=== PATIENT | female | born 1970 | race Caucasian/White ===

== ENCOUNTER 2018-02-11 07:34 | Observation (INO) | payer MEDICARE ==
[2018-02-11 08:41] LABS: CHLORIDE,CL 104 mmol/L (98-115); SODIUM,NA 139 mmol/L (136-145)
--- NOTE | 2018-02-11 08:43 | EDM.PDOC ---
ED HPI GENERAL MEDICAL PROBLEM - General Chief Complaint: Chest Pain Stated Complaint: chest pain Time Seen by Provider: 02/11/18 08:27 Source of Information: Reports: Patient History Limitations: Reports: No Limitations - History of Present Illness INITIAL COMMENTS - FREE TEXT/NARRATIVE: Patient is a 47-year-old female who presents to the emergency department this morning via EMS for chest pain. Patient states that she woke this morning and had midsternal chest pain while at rest, described as sharp and intermittent, and lasting for several minutes. Patient states that this is been going on and off for several months, but has not seeked medical advice. Patient also states that she has chronic low back pain. Patient is morbidly obese and sedentary. Patient denies shortness of breath, nausea, vomiting, diarrhea, any fall or trauma, any out of country travel, any increase in edema of lower extremities, social drugs or any medication. 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: Musculoskeletal History: Reports: Back Pain, Chronic Endocrine/Metabolic History: Reports: Obesity/BMI 30+ Dermatologic History: Reports: Other (See Below) Other Dermatologic History: dry skin - Past Surgical History Female Surgical History: Reports: Hysterectomy Musculoskeletal Surgical History: Reports: None Dermatological Surgical History: Reports: None Social & Family History - Tobacco Use Smoking Status *Q: Never Smoker - Caffeine Use Caffeine Use: Reports: Soda Other Caffeine Use: regular - Recreational Drug Use Recreational Drug Use: No ED ROS GENERAL - Review of Systems Review Of Systems: ROS reveals no pertinent complaints other than HPI. Constitutional: Reports: No Symptoms HEENT: Reports: No Symptoms Respiratory: Reports: No Symptoms Cardiovascular: Reports: Chest Pain Endocrine: Reports: No Symptoms GI/Abdominal: Reports: No Symptoms : Reports: No Symptoms Musculoskeletal: Reports: No Symptoms Skin: Reports: No Symptoms Neurological: Reports: No Symptoms Psychiatric: Reports: No Symptoms Hematologic/Lymphatic: Reports: No Symptoms Immunologic: Reports: No Symptoms ED EXAM, GENERAL - Physical Exam Exam: See Below Exam Limited By: No Limitations General Appearance: Alert, WD/WN, No Apparent Distress Eye Exam: Bilateral Eye: Normal Inspection Nose: Normal Inspection, Normal Mucosa, No Blood Throat/Mouth: Normal Inspection, Normal Oropharynx, No Airway Compromise Head: Atraumatic, Normocephalic Neck: Normal Inspection, Supple, Non-Tender Respiratory/Chest: No Respiratory Distress, Lungs Clear, Normal Breath Sounds, No Accessory Muscle Use Cardiovascular: Regular Rate, Rhythm, No Murmur GI/Abdominal: Normal Bowel Sounds, Soft, Non-Tender Back Exam: Normal Inspection. No: CVA Tenderness (L), CVA Tenderness (R) Extremities: Normal Inspection, No Pedal Edema Neurological: Alert, Oriented, Normal Cognition Psychiatric: Normal Affect, Normal Mood Skin Exam: Warm, Dry, Intact, Normal Color, No Rash EKG INTERPRETATION EKG Date: 02/11/18 Time: 08:10 Rhythm: NSR Rate (Beats/Min): 90 [place]: Normal P-Wave: Present QRS: Normal ST-T: Normal QT: Normal Comparison: NA - No Prior EKG Course - Vital Signs Last Recorded V/S: Last Vital Signs Temp 96.8 F 02/11/18 08:00 Pulse 92 02/11/18 08:00 Resp 20 02/11/18 08:00 BP 137/94 H 02/11/18 08:00 Pulse Ox 96 02/11/18 08:00 - Orders/Labs/Meds Orders: Active Orders 24 hr Category Date Time Status EKG Documentation Completion [RC] ASDIRECTED Care 02/11/18 08:05 Active CK W CKMB [CHEM] Stat Lab 02/11/18 08:05 Received COMPREHENSIVE METABOLIC PN,CMP [CHEM] Stat Lab 02/11/18 08:05 Received D-DIMER QUANTITATIVE [COAG] Stat Lab 02/11/18 08:05 Received LIPASE [CHEM] Stat Lab 02/11/18 08:05 Received TROPONIN I [CHEM] Stat Lab 02/11/18 08:05 Received EKG 12 Lead [EK] Routine Ther 02/11/18 07:45 Ordered Labs: Laboratory Tests 02/11/18 Range/Units 08:05 WBC 10.2 H (5.0-10.0) 10^3/uL RBC 4.65 (3.80-5.50) 10^6/uL Hgb 14.5 (12.0-16.0) g/dL Hct 43.4 (37.0-47.0) % MCV 93.3 H (82.0-92.0) fL MCH 31.1 H (27.0-31.0) pg MCHC 33.3 (32.0-36.0) g/dL RDW 13.1 (11.5-14.5) % Plt Count 236 (150-300) 10^3/uL MPV 7.6 (7.4-10.4) fL Neut % (Auto) 58.1 (50.0-70.0) % Lymph % (Auto) 32.7 (20.0-40.0) % Nash % (Auto) 6.6 (2.0-8.0) % Eos % (Auto) 2.0 (1.0-3.0) % Baso % (Auto) 0.6 (0.0-1.0) % Neut # (Auto) 5.9 (2.5-7.0) 10^3/uL Lymph # (Auto) 3.3 (1.0-4.0) 10^3/uL Nash # (Auto) 0.7 (0.1-0.8) 10^3/uL Eos # (Auto) 0.2 (0.1-0.3) 10^3/uL Baso # (Auto) 0.1 (0.0-0.1) 10^3/uL - Radiology Interpretation Free Text/Narrative:: Chest x-ray negative for acute cardiopulmonary process - Re-Assessments/Exams Free Text/Narrative Re-Assessment/Exam: 02/11/18 09:37 Patient afebrile, nontoxic appearing, vital signs stable. Discussed negative findings with patient. Patient and concerned. Patient will be admitted for observation and repeat lab work. Departure - Departure Time of Disposition: 09:46 Disposition: Refer to Observation Condition: Fair Clinical Impression: Atypical chest pain Referrals: Dari Lane MD [Primary Care Provider] - - My Orders Last 24 Hours: My Active Orders 02/11/18 07:45 EKG 12 Lead [EK] Routine 02/11/18 08:05 EKG Documentation Completion [RC] ASDIRECTED CK W CKMB [CHEM] Stat COMPREHENSIVE METABOLIC PN,CMP [CHEM] Stat D-DIMER QUANTITATIVE [COAG] Stat LIPASE [CHEM] Stat TROPONIN I [CHEM] Stat - Assessment/Plan Last 24 Hours: My Active Orders 02/11/18 07:45 EKG 12 Lead [EK] Routine 02/11/18 08:05 EKG Documentation Completion [RC] ASDIRECTED CK W CKMB [CHEM] Stat COMPREHENSIVE METABOLIC PN,CMP [CHEM] Stat D-DIMER QUANTITATIVE [COAG] Stat LIPASE [CHEM] Stat TROPONIN I [CHEM] Stat Assessment:: Atypical chest pain Plan: Admit for observation
[2018-02-11] MEDS ORDERED: Ketorolac 60 MG/2 ML SDV IM ONE (09:48)
[2018-02-11] MEDS ORDERED: Ibuprofen 200 MG Tab PO PRN (14:08)
--- NOTE | 2018-02-12 16:44 | PCM.DCSUM1 ---
Discharge Summary - Hospital Course Free Text/Narrative:: Patient is a 47-year-old female who was admitted for observation from the emergency Department this morning. Patient presented to the emergency with chest pain. After discussion with the patient and , consideration for observation versus going home, was evaluated. Patient and were concerned and hesitant to go home. Therefore, after consideration, patient was admitted for observation. Initial EKG and cardiac enzymes were negative. Vital signs were stable. Chest pain had resolved. Brief History: 47-year-old morbidly obese female presented to emergency department for chest pain and was admitted for observation for repeat cardiac enzymes and evaluation. - Discharge Data Discharge Date: 02/11/18 Discharge Disposition: Home, Self-Care 01 Condition: Good - Discharge Diagnosis/Problem(s) (1) Atypical chest pain SNOMED Code(s): 543639884 ICD Code: R07.89 - OTHER CHEST PAIN Status: Acute - Patient Summary/Data Hospital Course: EKG and troponin was repeated and there were no changes from prior results. After thorough discussion with patient and , it was decided that patient would be able to go home with a follow-up in 2 days at primary care. Patient will return to emergency department if symptoms continue or worsen. - Patient Instructions Diet: Heart Healthy Diet Activity: No Strenuous Activities Driving: Do Not Drive Showering/Bathing: May Shower - Discharge Plan Home Medications: Home Meds Ibuprofen 200 - 800 mg PO Q6H PRN 02/11/18 [History] Forms: ED Department Discharge Referrals: Dari Lane MD [Primary Care Provider] - - Discharge Summary/Plan Comment DC Time >30 min.: No Discharge Summary/Plan Comment: Patient will follow-up with Dr. Vaca in next 2 days. Concern for further cardiac, weight control, as well as diabetic workup considered. Patient will return to ER sooner if symptoms continue or worsen - Patient Data Vitals - Most Recent: Last Vital Signs Temp 98.0 F 02/11/18 10:25 Pulse 83 02/11/18 10:25 Resp 22 H 02/11/18 10:25 BP 157/105 H 02/11/18 10:25 Pulse Ox 97 02/11/18 10:25 Weight - Most Recent: 470 lb Med Orders - Current: Current Medications Discontinued Medications Ibuprofen (Motrin) 200 - 800 mg PO Q6H PRN PRN Reason: Pain Ketorolac Tromethamine (Toradol) 60 mg IM ONETIME ONE Stop: 02/11/18 09:49 Last Admin: 02/11/18 10:07 Dose: 60 mg
== END 2018-02-11 14:35 | disposition home or self-care (01) ==
LOC: KA.ED 07:34 → KA.MS 09:49
PROVIDERS: ADMIT Physician Assistant Surgical; ATTEND Physician Assistant Surgical
DX: R07.89 Other chest pain (principal); E66.01 Morbid (severe) obesity due to excess calories; Z68.30 Body mass index [BMI] 30.0-30.9, adult; Z90.710 Acquired absence of both cervix and uterus
CPT/HCPCS: 36415; 71045; 80053; 82550; 82553; 83690; 84484; 85025; 85379; 96372; 99285; J1885; 93005; G0378

== ENCOUNTER 2021-08-17 11:48 | Inpatient (IN) | payer MEDICARE ==
--- NOTE | 2021-08-17 11:48 | CR ---
[id number] RAD/RAD Toes Left EXAM: 3 VIEWS LEFT FOOT. INDICATION: LOCAL INFECTION OF THE SKIN AND SUBCUTANEOUS TISSUE, COMPARISON: None. DISCUSSION: Multi fragmentary cortical destruction of the distal 1st phalanx with underlying ulceration. Findings are consistent with acute osteomyelitis. Mild degenerative changes seen throughout the left foot. IMPRESSION: 1. Findings consistent with osteomyelitis of the distal 1st phalanx. Denys Sousa DO 08/17/21 1147 Thank you for allowing us to participate in the care of your patient.
[2021-08-17 12:12] LABS: ANION GAP 15.9 mmol/L (5-15); CHLORIDE,CL 103 mmol/L (98-107); SODIUM,NA 139 mmol/L (136-145)
--- NOTE | 2021-08-17 12:21 | PCM.HP.2 ---
H&P History of Present Illness - General Date of Service: 08/17/21 Admit Problem/Dx: Severely infected left great toe with high likelihood of osteomyelitis. Diabetes, oral management. Obesity. Source of Information: Patient History Limitations: Reports: No Limitations - History of Present Illness Initial Comments - Free Text/Narative: Ruma presents today with a scheduled clinic appointment for evaluation of what she stated was an infected toenail of the left great toe. She states is been ongoing for couple weeks and acknowledges some what, she possibly I probably should have come in sooner. She is unsure of her glucose management as she states she does not check her blood sugars. She is not aware of any risk factors for pandemic concerns. She was scheduled for this upcoming Tuesday for her 6-month review of diabetes with lab work scheduled. She may have mild fever chills symptoms but does not express any major concerns, at least not warranting evaluation sooner than today. She denies any issues with mentation, no difficulty with her appetite. No shortness of breath no chest pain. No abdominal discomfort, stating her urine may be slightly more frequent the past couple days but denies any dysuria or urgency. Onset of Symptoms: Reports: Unknown/Unsure Duration of Symptoms: Reports: Week(s): Location: Reports: Lower Extremity, Left Quality: Denies: Ache, Burning, Pressure, Sharp, Stabbing Severity: Severe Improves with: Reports: None Worsens with: Reports: Movement Context: Denies: Sick Contact, Activity/Exercise, Exertion Associated Symptoms: Reports: Fever/Chills - Related Data Allergies/Adverse Reactions: Allergies Allergy/AdvReac Type Severity Reaction Status Date / Time No Known Drug Allergies Allergy Cannot Verified 08/17/21 12:31 Remember Home Medications: Home Meds Gabapentin [Neurontin] 1,800 mg PO BEDTIME 08/17/21 [History] Ibuprofen 800 mg PO TID PRN 08/17/21 [History] atorvaSTATin Calcium [Atorvastatin Calcium] 10 mg PO DAILY 08/17/21 [History] glipiZIDE [Glipizide Xl] 5 mg PO DAILY 08/17/21 [History] metFORMIN [Glucophage XR] 1,000 mg PO BIDMEALS 08/17/21 [History] Past Medical History Cardiovascular History: Reports: High Cholesterol Respiratory History: Reports: None Gastrointestinal History: Reports: None Genitourinary History: Reports: 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: Musculoskeletal History: Reports: Back Pain, Chronic Neurological History: Reports: Neuropathy, Peripheral Psychiatric History: Reports: None Endocrine/Metabolic History: Reports: Diabetes, Type II, Obesity/BMI 30+ Dermatologic History: Reports: Other (See Below) Other Dermatologic History: dry skin - Past Surgical History Female Surgical History: Reports: Hysterectomy Musculoskeletal Surgical History: Reports: None Dermatological Surgical History: Reports: None Social & Family History - Family History Family Medical History: No Pertinent Family History - Caffeine Use Caffeine Use: Reports: Soda Other Caffeine Use: regular H&P Review of Systems - Review of Systems: Review Of Systems: Comprehensive ROS is negative, except as noted in HPI. Exam - Exam Exam: See Below - Exam General: Alert, Oriented, 4 HEENT: Conjunctiva Clear, EACs Clear, EOMI, Hearing Intact, Mucosa Moist & [place], Nares Patent, Normal Nasal Septum, Posterior Pharynx Clear, PERRLA Neck: Supple, Trachea Midline Lungs: Clear to Auscultation, Normal Respiratory Effort, Decreased Breath Sounds Cardiovascular: Regular Rate, Regular Rhythm. No: Systolic Murmur GI/Abdominal Exam: Normal Bowel Sounds, Soft. No: Rebound, Tender (Female) Exam: Deferred Rectal (Female) Exam: Deferred Back Exam: No: CVA Tenderness (L), CVA Tenderness (R) Extremities: Non-Tender, Pedal Edema, Other (Monofilament testing of the left lower extremity is negative in all factors except the dorsal forefoot midline third digit.Drainage is noted from the great toe with extreme erythema and swelling. There is very malodorous presentation. Redness in the surrounding margins with a deep dark appearanc) Skin: Warm, Dry. No: Intact Neurological: Cranial Nerves Intact Neuro Extensive - Mental Status: Alert, Oriented x3, Normal Mood/Affect, Normal Cognition Neuro Extensive - Motor, Sensory, Reflexes: CN II-XII Intact Psychiatric: Alert, Normal Affect, Normal Mood Physical Exam Comments:: Callused foot with poor monofilament testing throughout. She states this is been ongoing with the distal margin of the nailbed 2 to 3 weeks ago slightly worsening for her presentation today. She was initially scheduled for this Tuesday the for routine clinic visit. - Problem List (1) Diabetes 1.5, managed as type 2 SNOMED Code(s): 107927177 ICD Code: E13.9 - OTHER SPECIFIED DIABETES MELLITUS WITHOUT COMPLICATIONS Status: Acute Priority: High Current Visit: Yes (2) Obesity (BMI 30-39.9) SNOMED Code(s): 350279784, 760394725 ICD Code: E66.9 - OBESITY, UNSPECIFIED Status: Acute Current Visit: Yes (3) Skin ulcer of left great toe SNOMED Code(s): 615060295 ICD Code: L97.529 - NON-PRESSURE CHRONIC ULCER OTH PRT LEFT FOOT W UNSP SEVERITY Status: Acute Current Visit: Yes (4) Abrasion of great toe, left, infected SNOMED Code(s): 27496848654001694 ICD Code: S90.412A - ABRASION, LEFT GREAT TOE, INITIAL ENCOUNTER; L08.9 - LOCAL INFECTION OF THE SKIN AND SUBCUTANEOUS TISSUE, UNSP Status: Acute Current Visit: Yes (5) Osteomyelitis of toe of left foot SNOMED Code(s): 320567074, [id number], [id number] ICD Code: M86.9 - OSTEOMYELITIS, UNSPECIFIED Status: Acute Current Visit: Yes Problem List Initiated/Reviewed/Updated: Yes - Mortality Measure Prognosis:: Poor (likely amputation needed, consulting podiatry)
[2021-08-17] MEDS ORDERED: Sodium Chloride 0.9% 10 ML Syringe FLUSH PRN (12:28)
[2021-08-17] MEDS ORDERED: Docusate Sodium 100 MG Cap PO PRN (12:28)
[2021-08-17] MEDS ORDERED: Ondansetron 4 MG Tab.DIS PO PRN (12:28)
[2021-08-17] MEDS ORDERED: 50% Dextrose in Water 50 ML Syringe IVPUSH PRN (13:40)
[2021-08-17] MEDS ORDERED: Glucagon,Human Recombinant 1 MG Vial IM PRN (13:40)
[2021-08-17] MEDS: Ibuprofen 400 MG Tab PO PRN ×2 (14:17→21:27)
[2021-08-17] MEDS: Piperacillin/Tazobactam 4.5 GM in Sodium Chloride 0.9% 100 ML IV SCH ×2 (14:35→21:52)
[2021-08-17] MEDS: Sodium Chloride 0.9% 250 ML IV SCH (15:15)
--- NOTE | 2021-08-17 16:53 | PCM.SN.2 ---
- Free Text/Narrative Note: Ruma is feeling better this afternoon after Zosyn is completed and Vanco is being infused. An attempt for verification of the severity we have placed calls to Dr. Lyman with [facility] awaiting his call to be returned as he is in surgery. [facility] in [place] is on complete diversion other than STEMI, stroke, and trauma, and no podiatry available in [place] today. [facility] in [place] was contacted with no bed space available as well. Dr. James podiatry questions if there is the start of gas formation and states she would be better served being seen sooner than later. Unfortunately 1 call staffing states there is no bed space available and will keep us on the waiting list in the event no other facility opens up or confirmation of that would be obtained. As her dressing required changing this afternoon 1600 hrs. it is less malodorous with less than drainage. As I have no bone probe I used the catheter from an 18-gauge IV to probe and I do not get what would be attributed to a significant bone click but it is definitely near full-thickness to the bone. Darkened mucousy tissue is present at the base of this wound with no drainage at the time of this reexamination. I discussed with Ruma the aspects and severity of this she states she is feeling better at this time. Express that there is no bed available in the region and that with the severity of this to what extent and options presenting for her care. I diligently try to explain that the difficulty of transferring to another facility for reassessment only to be returned as no bed space being available leads me to question the benefit of that process as she is here, comfortable, and receiving IV antibiotic. She acknowledges that by stating "do what ever needs to be done to keep me alive." Time Documentation
[2021-08-17] MEDS: Insulin Aspart 100 Units/ML 3 ML Pen SUBCUT SCH ×2 (17:45→21:13)
[2021-08-17] MEDS: Gabapentin 300 MG Cap PO SCH (18:22)
[2021-08-17] MEDS ORDERED: Gabapentin 300 MG Cap PO SCH (21:00)
[2021-08-18] MEDS: Piperacillin/Tazobactam 4.5 GM in Sodium Chloride 0.9% 100 ML IV SCH ×3 (05:30→22:04)
[2021-08-18] MEDS: Ibuprofen 400 MG Tab PO PRN ×3 (05:45→20:10)
[2021-08-18] MEDS: Insulin Aspart 100 Units/ML 3 ML Pen SUBCUT SCH ×4 (07:37→21:05)
[2021-08-18] MEDS ORDERED: Gabapentin 300 MG Cap PO SCH (08:00)
[2021-08-18] MEDS: atorvaSTATin 10 MG Tab PO SCH (08:19)
[2021-08-18 08:33] LABS: ANION GAP 16.9 mmol/L (5-15); CHLORIDE,CL 106 mmol/L (98-107); SODIUM,NA 142 mmol/L (136-145)
[2021-08-18] MEDS: Sodium Chloride 0.9% 250 ML IV SCH (14:50)
--- NOTE | 2021-08-18 16:51 | PCM.PN ---
- General Info Date of Service: 08/18/21 Admission Dx/Problem (Free Text): LEFT great toe infection with osteomyelitis. - Review of Systems Systems Review Comment:: Ruma was admitted from clinic on 08/17 due to left great toe infection with underlying osteomyelitis. She was admitted by my colleague, JUJU Barreto, after he saw her for what Ruma thought was a toenail infection. She stated it had been present for a few weeks. She was noted to have a very swollen left great toe and the nail had actually falled off that there drainage that was malodorous as well as necrosis of the tissue under the toe. It was evident this had been going on for longer than a few weeks. Culture was taken, labs were obtained which showed an elevated WBC at 11.5 with no left shift, CRP of 13.6 and lactate of 2.4. She has known diabetes and last A1C from yesterday was 7.4. She has diabetic neuropathy and has no feeling in her feet. She had an x-ray that confirmed osteomyelitis. She was admitted and started on vancomycin and zosyn. Gaston spent a great deal of time yesterday and today speaking to podiatry as there is some concern for gas formation in the tissue and recommend amputation but there are no beds available anywhere at this time. She is on a waiting list at [facility] and could possibly go swingbed and go as an outpatient for same day surgery in [place] at [place] and return for wound care and PT. Ruma states she is feeling pretty well today. Really no pain. Appetite has been good. She has no questions. - Patient Data Vitals - Most Recent: Last Vital Signs Temp 97.6 F 08/18/21 15:00 Pulse 84 08/18/21 15:00 Resp 40 H 08/18/21 15:00 BP 157/84 H 08/18/21 15:00 Pulse Ox 94 L 08/18/21 15:00 Weight - Most Recent: 431 lb 8 oz I&O - Last 24 Hours: Intake & Output 08/18/21 08/18/21 08/18/21 06:59 14:59 22:59 Intake Total 500 1680 Output Total 300 3 Balance 200 1677 Lab Results Last 24 Hours: Laboratory Results - last 24 hr 08/17/21 08/17/21 08/17/21 Range/Units 11:00 11:20 11:20 WBC (5.00-10.00) 10^3/uL RBC (3.80-5.50) 10^6/uL Hgb (12.0-16.0) g/dL Hct (37.0-47.0) % MCV (82.0-92.0) fL MCH (27.0-31.0) pg MCHC (32.0-36.0) g/dL RDW (11.5-14.5) % Plt Count (150-400) 10^3/uL MPV (7.4-10.4) fL Immature Gran % (Auto) (0.0-5.0) % Neut % (Auto) (50.0-70.0) % Lymph % (Auto) (20.0-40.0) % Lipscomb % (Auto) (2.0-8.0) % Eos % (Auto) (1.0-3.0) % Baso % (Auto) (0.0-1.0) % Neut # (Auto) (2.50-7.00) 10^3/uL Lymph # (Auto) (1.00-4.00) 10^3/uL Lipscomb # (Auto) (0.10-0.80) 10^3/uL Eos # (Auto) (0.10-0.30) 10^3/uL Baso # (Auto) (0.00-0.10) 10^3/uL Immature Gran # (Auto) (0.00-0.50) 10^3/uL Sodium 139 (136-145) mmol/L Potassium 3.9 (3.5-5.1) mmol/L Chloride 103 (98-107) mmol/L Carbon Dioxide 24.0 (21.0-32.0) mmol/L Anion Gap 15.9 H (5-15) mmol/L BUN 18 (7-18) mg/dL Creatinine 0.69 (0.51-1.17) mg/dL Est Cr Clr Drug Dosing TNP Estimated GFR (MDRD) > 60 mL/min Glucose 181 H (70-140) mg/dL POC Glucose (70-140) mg/dL Lactic Acid 2.5 H (0.4-2.0) mmol/L Calcium 9.2 (8.7-10.3) mg/dL Total Bilirubin 0.6 (0.2-1.0) mg/dL AST 12 L (15-37) U/L ALT 22 (14-63) U/L Alkaline Phosphatase 107 (46-116) U/L C-Reactive Protein (0.0-0.9) mg/dL Total Protein 7.9 (6.4-8.2) g/dL Albumin 2.56 L (3.40-5.00) g/dL Triglycerides Cholesterol LDL Cholesterol, Calc HDL Cholesterol Vancomycin Trough (18.0-26.0) ug/mL SARS CoV-2 RNA Rapid LUCERO Negative (NEGATIVE) 08/17/21 08/17/21 08/17/21 Range/Units 11:20 11:20 17:43 WBC 11.52 H (5.00-10.00) 10^3/uL RBC 4.47 (3.80-5.50) 10^6/uL Hgb 13.1 D (12.0-16.0) g/dL Hct 42.1 (37.0-47.0) % MCV 94.2 H (82.0-92.0) fL MCH 29.3 (27.0-31.0) pg MCHC 31.1 L (32.0-36.0) g/dL RDW 13.6 (11.5-14.5) % Plt Count 334 (150-400) 10^3/uL MPV 8.9 (7.4-10.4) fL Immature Gran % (Auto) 1.0 (0.0-5.0) % Neut % (Auto) 69.9 (50.0-70.0) % Lymph % (Auto) 20.1 (20.0-40.0) % Lipscomb % (Auto) 7.0 (2.0-8.0) % Eos % (Auto) 1.8 (1.0-3.0) % Baso % (Auto) 0.2 (0.0-1.0) % Neut # (Auto) 8.05 H (2.50-7.00) 10^3/uL Lymph # (Auto) 2.32 (1.00-4.00) 10^3/uL Lipscomb # (Auto) 0.81 H (0.10-0.80) 10^3/uL Eos # (Auto) 0.21 (0.10-0.30) 10^3/uL Baso # (Auto) 0.02 (0.00-0.10) 10^3/uL Immature Gran # (Auto) 0.11 (0.00-0.50) 10^3/uL Sodium (136-145) mmol/L Potassium (3.5-5.1) mmol/L Chloride (98-107) mmol/L Carbon Dioxide (21.0-32.0) mmol/L Anion Gap (5-15) mmol/L BUN (7-18) mg/dL Creatinine (0.51-1.17) mg/dL Est Cr Clr Drug Dosing Estimated GFR (MDRD) mL/min Glucose (70-140) mg/dL POC Glucose 138 (70-140) mg/dL Lactic Acid (0.4-2.0) mmol/L Calcium (8.7-10.3) mg/dL Total Bilirubin (0.2-1.0) mg/dL AST (15-37) U/L ALT (14-63) U/L Alkaline Phosphatase (46-116) U/L C-Reactive Protein 13.6 H (0.0-0.9) mg/dL Total Protein (6.4-8.2) g/dL Albumin (3.40-5.00) g/dL Triglycerides Cancelled Cholesterol Cancelled LDL Cholesterol, Calc Cancelled HDL Cholesterol Cancelled Vancomycin Trough (18.0-26.0) ug/mL SARS CoV-2 RNA Rapid LUCERO (NEGATIVE) 08/17/21 08/18/21 08/18/21 Range/Units 20:58 07:35 07:50 WBC 11.85 H (5.00-10.00) 10^3/uL RBC 3.93 (3.80-5.50) 10^6/uL Hgb 11.6 L D (12.0-16.0) g/dL Hct 37.1 (37.0-47.0) % MCV 94.4 H (82.0-92.0) fL MCH 29.5 (27.0-31.0) pg MCHC 31.3 L (32.0-36.0) g/dL RDW 13.8 (11.5-14.5) % Plt Count 299 (150-400) 10^3/uL MPV 8.9 (7.4-10.4) fL Immature Gran % (Auto) 1.6 (0.0-5.0) % Neut % (Auto) 62.4 (50.0-70.0) % Lymph % (Auto) 22.6 (20.0-40.0) % Lipscomb % (Auto) 9.5 H (2.0-8.0) % Eos % (Auto) 3.6 H (1.0-3.0) % Baso % (Auto) 0.3 (0.0-1.0) % Neut # (Auto) 7.40 H (2.50-7.00) 10^3/uL Lymph # (Auto) 2.68 (1.00-4.00) 10^3/uL Lipscomb # (Auto) 1.12 H (0.10-0.80) 10^3/uL Eos # (Auto) 0.43 H (0.10-0.30) 10^3/uL Baso # (Auto) 0.03 (0.00-0.10) 10^3/uL Immature Gran # (Auto) 0.19 (0.00-0.50) 10^3/uL Sodium (136-145) mmol/L Potassium (3.5-5.1) mmol/L Chloride (98-107) mmol/L Carbon Dioxide (21.0-32.0) mmol/L Anion Gap (5-15) mmol/L BUN (7-18) mg/dL Creatinine (0.51-1.17) mg/dL Est Cr Clr Drug Dosing Estimated GFR (MDRD) mL/min Glucose (70-140) mg/dL POC Glucose 191 H 183 H (70-140) mg/dL Lactic Acid (0.4-2.0) mmol/L Calcium (8.7-10.3) mg/dL Total Bilirubin (0.2-1.0) mg/dL AST (15-37) U/L ALT (14-63) U/L Alkaline Phosphatase (46-116) U/L C-Reactive Protein (0.0-0.9) mg/dL Total Protein (6.4-8.2) g/dL Albumin (3.40-5.00) g/dL Triglycerides Cholesterol LDL Cholesterol, Calc HDL Cholesterol Vancomycin Trough (18.0-26.0) ug/mL SARS CoV-2 RNA Rapid LUCERO (NEGATIVE) 08/18/21 08/18/21 08/18/21 Range/Units 07:50 07:50 12:09 WBC (5.00-10.00) 10^3/uL RBC (3.80-5.50) 10^6/uL Hgb (12.0-16.0) g/dL Hct (37.0-47.0) % MCV (82.0-92.0) fL MCH (27.0-31.0) pg MCHC (32.0-36.0) g/dL RDW (11.5-14.5) % Plt Count (150-400) 10^3/uL MPV (7.4-10.4) fL Immature Gran % (Auto) (0.0-5.0) % Neut % (Auto) (50.0-70.0) % Lymph % (Auto) (20.0-40.0) % Lipscomb % (Auto) (2.0-8.0) % Eos % (Auto) (1.0-3.0) % Baso % (Auto) (0.0-1.0) % Neut # (Auto) (2.50-7.00) 10^3/uL Lymph # (Auto) (1.00-4.00) 10^3/uL Lipscomb # (Auto) (0.10-0.80) 10^3/uL Eos # (Auto) (0.10-0.30) 10^3/uL Baso # (Auto) (0.00-0.10) 10^3/uL Immature Gran # (Auto) (0.00-0.50) 10^3/uL Sodium 142 (136-145) mmol/L Potassium 4.2 (3.5-5.1) mmol/L Chloride 106 (98-107) mmol/L Carbon Dioxide 23.3 (21.0-32.0) mmol/L Anion Gap 16.9 H (5-15) mmol/L BUN 17 (7-18) mg/dL Creatinine 0.74 (0.51-1.17) mg/dL Est Cr Clr Drug Dosing 83.25 Estimated GFR (MDRD) > 60 mL/min Glucose 182 H (70-140) mg/dL POC Glucose 192 H (70-140) mg/dL Lactic Acid 1.4 (0.4-2.0) mmol/L Calcium 8.7 (8.7-10.3) mg/dL Total Bilirubin 0.7 (0.2-1.0) mg/dL AST 13 L (15-37) U/L ALT 19 (14-63) U/L Alkaline Phosphatase 90 (46-116) U/L C-Reactive Protein (0.0-0.9) mg/dL Total Protein 7.2 (6.4-8.2) g/dL Albumin 2.23 L (3.40-5.00) g/dL Triglycerides Cholesterol LDL Cholesterol, Calc HDL Cholesterol Vancomycin Trough (18.0-26.0) ug/mL SARS CoV-2 RNA Rapid LUCERO (NEGATIVE) 08/18/21 Range/Units 15:35 WBC (5.00-10.00) 10^3/uL RBC (3.80-5.50) 10^6/uL Hgb (12.0-16.0) g/dL Hct (37.0-47.0) % MCV (82.0-92.0) fL MCH (27.0-31.0) pg MCHC (32.0-36.0) g/dL RDW (11.5-14.5) % Plt Count (150-400) 10^3/uL MPV (7.4-10.4) fL Immature Gran % (Auto) (0.0-5.0) % Neut % (Auto) (50.0-70.0) % Lymph % (Auto) (20.0-40.0) % Lipscomb % (Auto) (2.0-8.0) % Eos % (Auto) (1.0-3.0) % Baso % (Auto) (0.0-1.0) % Neut # (Auto) (2.50-7.00) 10^3/uL Lymph # (Auto) (1.00-4.00) 10^3/uL Lipscomb # (Auto) (0.10-0.80) 10^3/uL Eos # (Auto) (0.10-0.30) 10^3/uL Baso # (Auto) (0.00-0.10) 10^3/uL Immature Gran # (Auto) (0.00-0.50) 10^3/uL Sodium (136-145) mmol/L Potassium (3.5-5.1) mmol/L Chloride (98-107) mmol/L Carbon Dioxide (21.0-32.0) mmol/L Anion Gap (5-15) mmol/L BUN (7-18) mg/dL Creatinine (0.51-1.17) mg/dL Est Cr Clr Drug Dosing Estimated GFR (MDRD) mL/min Glucose (70-140) mg/dL POC Glucose (70-140) mg/dL Lactic Acid (0.4-2.0) mmol/L Calcium (8.7-10.3) mg/dL Total Bilirubin (0.2-1.0) mg/dL AST (15-37) U/L ALT (14-63) U/L Alkaline Phosphatase (46-116) U/L C-Reactive Protein (0.0-0.9) mg/dL Total Protein (6.4-8.2) g/dL Albumin (3.40-5.00) g/dL Triglycerides Cholesterol LDL Cholesterol, Calc HDL Cholesterol Vancomycin Trough 13.3 L (18.0-26.0) ug/mL SARS CoV-2 RNA Rapid LUCERO (NEGATIVE) [facility] Results Last 24 Hours: Microbiology 08/17/21 11:00 Aerobic Culture - Preliminary Toe, Left - Left Big Beta Streptococcus Group B Gram Stain - Final 08/17/21 13:25 Aerobic Blood Culture - Preliminary Blood - Venous NO GROWTH AFTER 1 DAY Anaerobic Blood Culture - Preliminary NO GROWTH AFTER 1 DAY Med Orders - Current: Current Medications Acetaminophen (Acetaminophen 325 Mg Tab) 650 mg PO Q4H PRN PRN Reason: Pain (Mild 1-3)/fever Atorvastatin Calcium (Atorvastatin 10 Mg Tab) 10 mg PO DAILY [facility] Last Admin: 08/18/21 08:19 Dose: 10 mg Documented by: Dextrose/Water (50% Dextrose In Water 50 Ml Syringe) 50 ml IVPUSH ASDIRECTED PRN PRN Reason: Hypoglycemia Docusate Sodium (Docusate Sodium 100 Mg Cap) 100 mg PO BID PRN PRN Reason: Constipation Gabapentin (Gabapentin 300 Mg Cap) 1,800 mg PO 1800 [facility] Last Admin: 08/17/21 18:22 Dose: 1,800 mg Documented by: Glucagon (Glucagon,Human Recombinant 1 Mg Vial) 1 mg IM ASDIRECTED PRN PRN Reason: Hypoglycemia Piperacillin Sod/Tazobactam (Sod 4.5 gm/ Sodium Chloride) 100 mls @ 200 mls/hr IV Q8H [facility] Last Admin: 08/18/21 14:50 Dose: 200 mls/hr Documented by: Sodium Chloride (Normal Saline) 250 mls @ 125 mls/hr IV ASDIRECTED [facility] Last Admin: 08/18/21 14:50 Dose: 125 mls/hr Documented by: Vancomycin HCl 1.75 gm/ Sodium (Chloride) 250 mls @ 100 mls/hr IV Q8H [facility] Ibuprofen (Ibuprofen 400 Mg Tab) 800 mg PO Q6H PRN PRN Reason: Pain Last Admin: 08/18/21 14:01 Dose: 800 mg Documented by: Insulin Aspart (Insulin Aspart 100 Units/Ml 3 Ml Pen) 0 unit SUBCUT WITHMEALSANDBED [facility]; Protocol Last Admin: 08/18/21 12:14 Dose: 2 unit Documented by: Ondansetron HCl (Ondansetron 4 Mg Tab.Dis) 4 mg PO Q4H PRN PRN Reason: nausea, able to take PO Sodium Chloride (Sodium Chloride 0.9% 10 Ml Syringe) 10 ml FLUSH Q8HR PRN PRN Reason: keep vein open Vancomycin HCl (Pharmacy To Dose - Vancomycin) 1 dose .XX DAILY [facility] Discontinued Medications Gabapentin (Gabapentin 300 Mg Cap) 1,200 mg PO BEDTIME [facility] Vancomycin HCl 1.5 gm/ Sodium (Chloride) 250 mls @ 125 mls/hr IV Q8H [facility] Last Admin: 08/18/21 06:15 Dose: 125 mls/hr Documented by: - Exam General: Alert, Oriented, Cooperative, No Acute Distress Lungs: Clear to Auscultation, Normal Respiratory Effort Cardiovascular: Regular Rate, Regular Rhythm, No Murmurs Wound/Incisions: Other (Left great toe is swollen, erythematous. The great toenail is no longer present, there is foul smelling drainage from the underside of the great toe. The area is dark but no eschar.) - Patient Data Lab Results Last 24 hrs: Laboratory Results - last 24 hr 08/17/21 08/17/21 08/17/21 Range/Units 11:00 11:20 11:20 WBC (5.00-10.00) 10^3/uL RBC (3.80-5.50) 10^6/uL Hgb (12.0-16.0) g/dL Hct (37.0-47.0) % MCV (82.0-92.0) fL MCH (27.0-31.0) pg MCHC (32.0-36.0) g/dL RDW (11.5-14.5) % Plt Count (150-400) 10^3/uL MPV (7.4-10.4) fL Immature Gran % (Auto) (0.0-5.0) % Neut % (Auto) (50.0-70.0) % Lymph % (Auto) (20.0-40.0) % Lipscomb % (Auto) (2.0-8.0) % Eos % (Auto) (1.0-3.0) % Baso % (Auto) (0.0-1.0) % Neut # (Auto) (2.50-7.00) 10^3/uL Lymph # (Auto) (1.00-4.00) 10^3/uL Lipscomb # (Auto) (0.10-0.80) 10^3/uL Eos # (Auto) (0.10-0.30) 10^3/uL Baso # (Auto) (0.00-0.10) 10^3/uL Immature Gran # (Auto) (0.00-0.50) 10^3/uL Sodium 139 (136-145) mmol/L Potassium 3.9 (3.5-5.1) mmol/L Chloride 103 (98-107) mmol/L Carbon Dioxide 24.0 (21.0-32.0) mmol/L Anion Gap 15.9 H (5-15) mmol/L BUN 18 (7-18) mg/dL Creatinine 0.69 (0.51-1.17) mg/dL Est Cr Clr Drug Dosing TNP Estimated GFR (MDRD) > 60 mL/min Glucose 181 H (70-140) mg/dL POC Glucose (70-140) mg/dL Lactic Acid 2.5 H (0.4-2.0) mmol/L Calcium 9.2 (8.7-10.3) mg/dL Total Bilirubin 0.6 (0.2-1.0) mg/dL AST 12 L (15-37) U/L ALT 22 (14-63) U/L Alkaline Phosphatase 107 (46-116) U/L C-Reactive Protein (0.0-0.9) mg/dL Total Protein 7.9 (6.4-8.2) g/dL Albumin 2.56 L (3.40-5.00) g/dL Triglycerides Cholesterol LDL Cholesterol, Calc HDL Cholesterol Vancomycin Trough (18.0-26.0) ug/mL SARS CoV-2 RNA Rapid LUCERO Negative (NEGATIVE) 08/17/21 08/17/21 08/17/21 Range/Units 11:20 11:20 17:43 WBC 11.52 H (5.00-10.00) 10^3/uL RBC 4.47 (3.80-5.50) 10^6/uL Hgb 13.1 D (12.0-16.0) g/dL Hct 42.1 (37.0-47.0) % MCV 94.2 H (82.0-92.0) fL MCH 29.3 (27.0-31.0) pg MCHC 31.1 L (32.0-36.0) g/dL RDW 13.6 (11.5-14.5) % Plt Count 334 (150-400) 10^3/uL MPV 8.9 (7.4-10.4) fL Immature Gran % (Auto) 1.0 (0.0-5.0) % Neut % (Auto) 69.9 (50.0-70.0) % Lymph % (Auto) 20.1 (20.0-40.0) % Lipscomb % (Auto) 7.0 (2.0-8.0) % Eos % (Auto) 1.8 (1.0-3.0) % Baso % (Auto) 0.2 (0.0-1.0) % Neut # (Auto) 8.05 H (2.50-7.00) 10^3/uL Lymph # (Auto) 2.32 (1.00-4.00) 10^3/uL Lipscomb # (Auto) 0.81 H (0.10-0.80) 10^3/uL Eos # (Auto) 0.21 (0.10-0.30) 10^3/uL Baso # (Auto) 0.02 (0.00-0.10) 10^3/uL Immature Gran # (Auto) 0.11 (0.00-0.50) 10^3/uL Sodium (136-145) mmol/L Potassium (3.5-5.1) mmol/L Chloride (98-107) mmol/L Carbon Dioxide (21.0-32.0) mmol/L Anion Gap (5-15) mmol/L BUN (7-18) mg/dL Creatinine (0.51-1.17) mg/dL Est Cr Clr Drug Dosing Estimated GFR (MDRD) mL/min Glucose (70-140) mg/dL POC Glucose 138 (70-140) mg/dL Lactic Acid (0.4-2.0) mmol/L Calcium (8.7-10.3) mg/dL Total Bilirubin (0.2-1.0) mg/dL AST (15-37) U/L ALT (14-63) U/L Alkaline Phosphatase (46-116) U/L C-Reactive Protein 13.6 H (0.0-0.9) mg/dL Total Protein (6.4-8.2) g/dL Albumin (3.40-5.00) g/dL Triglycerides Cancelled Cholesterol Cancelled LDL Cholesterol, Calc Cancelled HDL Cholesterol Cancelled Vancomycin Trough (18.0-26.0) ug/mL SARS CoV-2 RNA Rapid LUCERO (NEGATIVE) 08/17/21 08/18/21 08/18/21 Range/Units 20:58 07:35 07:50 WBC 11.85 H (5.00-10.00) 10^3/uL RBC 3.93 (3.80-5.50) 10^6/uL Hgb 11.6 L D (12.0-16.0) g/dL Hct 37.1 (37.0-47.0) % MCV 94.4 H (82.0-92.0) fL MCH 29.5 (27.0-31.0) pg MCHC 31.3 L (32.0-36.0) g/dL RDW 13.8 (11.5-14.5) % Plt Count 299 (150-400) 10^3/uL MPV 8.9 (7.4-10.4) fL Immature Gran % (Auto) 1.6 (0.0-5.0) % Neut % (Auto) 62.4 (50.0-70.0) % Lymph % (Auto) 22.6 (20.0-40.0) % Lipscomb % (Auto) 9.5 H (2.0-8.0) % Eos % (Auto) 3.6 H (1.0-3.0) % Baso % (Auto) 0.3 (0.0-1.0) % Neut # (Auto) 7.40 H (2.50-7.00) 10^3/uL Lymph # (Auto) 2.68 (1.00-4.00) 10^3/uL Lipscomb # (Auto) 1.12 H (0.10-0.80) 10^3/uL Eos # (Auto) 0.43 H (0.10-0.30) 10^3/uL Baso # (Auto) 0.03 (0.00-0.10) 10^3/uL Immature Gran # (Auto) 0.19 (0.00-0.50) 10^3/uL Sodium (136-145) mmol/L Potassium (3.5-5.1) mmol/L Chloride (98-107) mmol/L Carbon Dioxide (21.0-32.0) mmol/L Anion Gap (5-15) mmol/L BUN (7-18) mg/dL Creatinine (0.51-1.17) mg/dL Est Cr Clr Drug Dosing Estimated GFR (MDRD) mL/min Glucose (70-140) mg/dL POC Glucose 191 H 183 H (70-140) mg/dL Lactic Acid (0.4-2.0) mmol/L Calcium (8.7-10.3) mg/dL Total Bilirubin (0.2-1.0) mg/dL AST (15-37) U/L ALT (14-63) U/L Alkaline Phosphatase (46-116) U/L C-Reactive Protein (0.0-0.9) mg/dL Total Protein (6.4-8.2) g/dL Albumin (3.40-5.00) g/dL Triglycerides Cholesterol LDL Cholesterol, Calc HDL Cholesterol Vancomycin Trough (18.0-26.0) ug/mL SARS CoV-2 RNA Rapid LUCERO (NEGATIVE) 08/18/21 08/18/21 08/18/21 Range/Units 07:50 07:50 12:09 WBC (5.00-10.00) 10^3/uL RBC (3.80-5.50) 10^6/uL Hgb (12.0-16.0) g/dL Hct (37.0-47.0) % MCV (82.0-92.0) fL MCH (27.0-31.0) pg MCHC (32.0-36.0) g/dL RDW (11.5-14.5) % Plt Count (150-400) 10^3/uL MPV (7.4-10.4) fL Immature Gran % (Auto) (0.0-5.0) % Neut % (Auto) (50.0-70.0) % Lymph % (Auto) (20.0-40.0) % Lipscomb % (Auto) (2.0-8.0) % Eos % (Auto) (1.0-3.0) % Baso % (Auto) (0.0-1.0) % Neut # (Auto) (2.50-7.00) 10^3/uL Lymph # (Auto) (1.00-4.00) 10^3/uL Lipscomb # (Auto) (0.10-0.80) 10^3/uL Eos # (Auto) (0.10-0.30) 10^3/uL Baso # (Auto) (0.00-0.10) 10^3/uL Immature Gran # (Auto) (0.00-0.50) 10^3/uL Sodium 142 (136-145) mmol/L Potassium 4.2 (3.5-5.1) mmol/L Chloride 106 (98-107) mmol/L Carbon Dioxide 23.3 (21.0-32.0) mmol/L Anion Gap 16.9 H (5-15) mmol/L BUN 17 (7-18) mg/dL Creatinine 0.74 (0.51-1.17) mg/dL Est Cr Clr Drug Dosing 83.25 Estimated GFR (MDRD) > 60 mL/min Glucose 182 H (70-140) mg/dL POC Glucose 192 H (70-140) mg/dL Lactic Acid 1.4 (0.4-2.0) mmol/L Calcium 8.7 (8.7-10.3) mg/dL Total Bilirubin 0.7 (0.2-1.0) mg/dL AST 13 L (15-37) U/L ALT 19 (14-63) U/L Alkaline Phosphatase 90 (46-116) U/L C-Reactive Protein (0.0-0.9) mg/dL Total Protein 7.2 (6.4-8.2) g/dL Albumin 2.23 L (3.40-5.00) g/dL Triglycerides Cholesterol LDL Cholesterol, Calc HDL Cholesterol Vancomycin Trough (18.0-26.0) ug/mL SARS CoV-2 RNA Rapid LUCERO (NEGATIVE) 08/18/21 Range/Units 15:35 WBC (5.00-10.00) 10^3/uL RBC (3.80-5.50) 10^6/uL Hgb (12.0-16.0) g/dL Hct (37.0-47.0) % MCV (82.0-92.0) fL MCH (27.0-31.0) pg MCHC (32.0-36.0) g/dL RDW (11.5-14.5) % Plt Count (150-400) 10^3/uL MPV (7.4-10.4) fL Immature Gran % (Auto) (0.0-5.0) % Neut % (Auto) (50.0-70.0) % Lymph % (Auto) (20.0-40.0) % Lipscomb % (Auto) (2.0-8.0) % Eos % (Auto) (1.0-3.0) % Baso % (Auto) (0.0-1.0) % Neut # (Auto) (2.50-7.00) 10^3/uL Lymph # (Auto) (1.00-4.00) 10^3/uL Lipscomb # (Auto) (0.10-0.80) 10^3/uL Eos # (Auto) (0.10-0.30) 10^3/uL Baso # (Auto) (0.00-0.10) 10^3/uL Immature Gran # (Auto) (0.00-0.50) 10^3/uL Sodium (136-145) mmol/L Potassium (3.5-5.1) mmol/L Chloride (98-107) mmol/L Carbon Dioxide (21.0-32.0) mmol/L Anion Gap (5-15) mmol/L BUN (7-18) mg/dL Creatinine (0.51-1.17) mg/dL Est Cr Clr Drug Dosing Estimated GFR (MDRD) mL/min Glucose (70-140) mg/dL POC Glucose (70-140) mg/dL Lactic Acid (0.4-2.0) mmol/L Calcium (8.7-10.3) mg/dL Total Bilirubin (0.2-1.0) mg/dL AST (15-37) U/L ALT (14-63) U/L Alkaline Phosphatase (46-116) U/L C-Reactive Protein (0.0-0.9) mg/dL Total Protein (6.4-8.2) g/dL Albumin (3.40-5.00) g/dL Triglycerides Cholesterol LDL Cholesterol, Calc HDL Cholesterol Vancomycin Trough 13.3 L (18.0-26.0) ug/mL SARS CoV-2 RNA Rapid LUCERO (NEGATIVE) Result Diagrams: 08/18/21 07:50 08/18/21 07:50 [facility] Results Last 24 hrs: Microbiology 08/17/21 11:00 Aerobic Culture - Preliminary Toe, Left - Left Big Beta Streptococcus Group B Gram Stain - Final 08/17/21 13:25 Aerobic Blood Culture - Preliminary Blood - Venous NO GROWTH AFTER 1 DAY Anaerobic Blood Culture - Preliminary NO GROWTH AFTER 1 DAY Sepsis Event Note - Evaluation Sepsis Screening Result: No Definite Risk - Focused Exam Vital Signs: Vital Signs Temp Pulse Resp BP Pulse Ox 08/18/21 15:00 97.6 F 84 40 H 157/84 H 94 L 08/18/21 07:00 97.5 F 76 20 134/82 93 L - Problem List Review Problem List Initiated/Reviewed/Updated: Yes - My Orders Last 24 Hours: My Active Orders 08/18/21 07:50 SED RATE [REF] Routine - Assessment Assessment:: Admission Diagnoses: Left great toe infection with underlying osteomyelitis - Vancomycin, pharm to dose - Zosyn 4.5 grams IV z 8 hours - [facility] transfer as an outpatient for same day amputation at [facility] Diabetes: - Hold Glipizide - Hold metformin - Insulin Aspart per sliding scale Secondary Diagnoses: Hyperlipidemia - Atorvastatin 10 mg PO daily Diabetic neuropathy - Gabapentin 600 mg PO q AM and 1,200 mg PO q PM CODE STATUS: Full Code
[2021-08-18] MEDS: Gabapentin 300 MG Cap PO SCH (17:54)
[2021-08-19] MEDS: Ibuprofen 400 MG Tab PO PRN ×2 (05:26→17:56)
[2021-08-19] MEDS: Piperacillin/Tazobactam 4.5 GM in Sodium Chloride 0.9% 100 ML IV SCH ×4 (05:35→21:31)
[2021-08-19 08:26] LABS: ANION GAP 17.2 mmol/L (5-15); CHLORIDE,CL 108 mmol/L (98-107); SODIUM,NA 142 mmol/L (136-145)
[2021-08-19] MEDS: Insulin Aspart 100 Units/ML 3 ML Pen SUBCUT SCH ×5 (08:52→21:13)
[2021-08-19] MEDS: atorvaSTATin 10 MG Tab PO SCH (08:53)
[2021-08-19] MEDS: Sodium Chloride 0.9% 250 ML IV SCH (08:54)
--- NOTE | 2021-08-19 12:09 | PCM.PN ---
- General Info Date of Service: 08/19/21 Admission Dx/Problem (Free Text): LEFT great toe infection with osteomyelitis. Subjective Update: Ruma has been overall doing well with no major complaints. She is tolerating the antibiotic with no sequela but otherwise. Appetite is maintained. She states she is concerned over the fact that no facility is available for the Amputation process due to her osteomyelitis. She states she is anxiously awaiting to find out what will be taking place over the course of the next 2 days. Functional Status: Reports: Pain Controlled - Review of Systems General: Reports: No Symptoms HEENT: Reports: No Symptoms Pulmonary: Reports: No Symptoms Cardiovascular: Reports: No Symptoms Gastrointestinal: Reports: No Symptoms Genitourinary: Reports: No Symptoms Musculoskeletal: Reports: No Symptoms Skin: Reports: No Symptoms Neurological: Reports: No Symptoms Psychiatric: Reports: No Symptoms - Patient Data Vitals - Most Recent: Last Vital Signs Temp 97.5 F 08/19/21 06:14 Pulse 85 08/19/21 06:14 Resp 20 08/19/21 06:14 BP 151/89 H 08/19/21 06:14 Pulse Ox 95 08/19/21 06:14 Weight - Most Recent: 431 lb 8 oz I&O - Last 24 Hours: Intake & Output 08/18/21 08/19/21 08/19/21 22:59 06:59 14:59 Intake Total 400 150 Output Total 3 500 Balance 397 -350 Lab Results Last 24 Hours: Laboratory Results - last 24 hr 08/17/21 08/17/21 08/17/21 Range/Units 11:00 11:20 11:20 WBC (5.00-10.00) 10^3/uL RBC (3.80-5.50) 10^6/uL Hgb (12.0-16.0) g/dL Hct (37.0-47.0) % MCV (82.0-92.0) fL MCH (27.0-31.0) pg MCHC (32.0-36.0) g/dL RDW (11.5-14.5) % Plt Count (150-400) 10^3/uL MPV (7.4-10.4) fL Immature Gran % (Auto) (0.0-5.0) % Neut % (Auto) (50.0-70.0) % Lymph % (Auto) (20.0-40.0) % Jewell % (Auto) (2.0-8.0) % Eos % (Auto) (1.0-3.0) % Baso % (Auto) (0.0-1.0) % Neut # (Auto) (2.50-7.00) 10^3/uL Lymph # (Auto) (1.00-4.00) 10^3/uL Jewell # (Auto) (0.10-0.80) 10^3/uL Eos # (Auto) (0.10-0.30) 10^3/uL Baso # (Auto) (0.00-0.10) 10^3/uL Immature Gran # (Auto) (0.00-0.50) 10^3/uL Sodium 139 (136-145) mmol/L Potassium 3.9 (3.5-5.1) mmol/L Chloride 103 (98-107) mmol/L Carbon Dioxide 24.0 (21.0-32.0) mmol/L Anion Gap 15.9 H (5-15) mmol/L BUN 18 (7-18) mg/dL Creatinine 0.69 (0.51-1.17) mg/dL Est Cr Clr Drug Dosing TNP Estimated GFR (MDRD) > 60 mL/min Glucose 181 H (70-140) mg/dL POC Glucose (70-140) mg/dL Lactic Acid 2.5 H (0.4-2.0) mmol/L Calcium 9.2 (8.7-10.3) mg/dL Total Bilirubin 0.6 (0.2-1.0) mg/dL AST 12 L (15-37) U/L ALT 22 (14-63) U/L Alkaline Phosphatase 107 (46-116) U/L C-Reactive Protein (0.0-0.9) mg/dL Total Protein 7.9 (6.4-8.2) g/dL Albumin 2.56 L (3.40-5.00) g/dL Triglycerides Cholesterol LDL Cholesterol, Calc HDL Cholesterol Vancomycin Trough (18.0-26.0) ug/mL SARS CoV-2 RNA Rapid LUCERO Negative (NEGATIVE) 08/17/21 08/17/21 08/18/21 Range/Units 11:20 11:20 12:09 WBC 11.52 H (5.00-10.00) 10^3/uL RBC 4.47 (3.80-5.50) 10^6/uL Hgb 13.1 D (12.0-16.0) g/dL Hct 42.1 (37.0-47.0) % MCV 94.2 H (82.0-92.0) fL MCH 29.3 (27.0-31.0) pg MCHC 31.1 L (32.0-36.0) g/dL RDW 13.6 (11.5-14.5) % Plt Count 334 (150-400) 10^3/uL MPV 8.9 (7.4-10.4) fL Immature Gran % (Auto) 1.0 (0.0-5.0) % Neut % (Auto) 69.9 (50.0-70.0) % Lymph % (Auto) 20.1 (20.0-40.0) % Jewell % (Auto) 7.0 (2.0-8.0) % Eos % (Auto) 1.8 (1.0-3.0) % Baso % (Auto) 0.2 (0.0-1.0) % Neut # (Auto) 8.05 H (2.50-7.00) 10^3/uL Lymph # (Auto) 2.32 (1.00-4.00) 10^3/uL Jewell # (Auto) 0.81 H (0.10-0.80) 10^3/uL Eos # (Auto) 0.21 (0.10-0.30) 10^3/uL Baso # (Auto) 0.02 (0.00-0.10) 10^3/uL Immature Gran # (Auto) 0.11 (0.00-0.50) 10^3/uL Sodium (136-145) mmol/L Potassium (3.5-5.1) mmol/L Chloride (98-107) mmol/L Carbon Dioxide (21.0-32.0) mmol/L Anion Gap (5-15) mmol/L BUN (7-18) mg/dL Creatinine (0.51-1.17) mg/dL Est Cr Clr Drug Dosing Estimated GFR (MDRD) mL/min Glucose (70-140) mg/dL POC Glucose 192 H (70-140) mg/dL Lactic Acid (0.4-2.0) mmol/L Calcium (8.7-10.3) mg/dL Total Bilirubin (0.2-1.0) mg/dL AST (15-37) U/L ALT (14-63) U/L Alkaline Phosphatase (46-116) U/L C-Reactive Protein 13.6 H (0.0-0.9) mg/dL Total Protein (6.4-8.2) g/dL Albumin (3.40-5.00) g/dL Triglycerides Cancelled Cholesterol Cancelled LDL Cholesterol, Calc Cancelled HDL Cholesterol Cancelled Vancomycin Trough (18.0-26.0) ug/mL SARS CoV-2 RNA Rapid LUCERO (NEGATIVE) 08/18/21 08/18/21 08/18/21 Range/Units 15:35 17:45 20:06 WBC (5.00-10.00) 10^3/uL RBC (3.80-5.50) 10^6/uL Hgb (12.0-16.0) g/dL Hct (37.0-47.0) % MCV (82.0-92.0) fL MCH (27.0-31.0) pg MCHC (32.0-36.0) g/dL RDW (11.5-14.5) % Plt Count (150-400) 10^3/uL MPV (7.4-10.4) fL Immature Gran % (Auto) (0.0-5.0) % Neut % (Auto) (50.0-70.0) % Lymph % (Auto) (20.0-40.0) % Jewell % (Auto) (2.0-8.0) % Eos % (Auto) (1.0-3.0) % Baso % (Auto) (0.0-1.0) % Neut # (Auto) (2.50-7.00) 10^3/uL Lymph # (Auto) (1.00-4.00) 10^3/uL Jewell # (Auto) (0.10-0.80) 10^3/uL Eos # (Auto) (0.10-0.30) 10^3/uL Baso # (Auto) (0.00-0.10) 10^3/uL Immature Gran # (Auto) (0.00-0.50) 10^3/uL Sodium (136-145) mmol/L Potassium (3.5-5.1) mmol/L Chloride (98-107) mmol/L Carbon Dioxide (21.0-32.0) mmol/L Anion Gap (5-15) mmol/L BUN (7-18) mg/dL Creatinine (0.51-1.17) mg/dL Est Cr Clr Drug Dosing Estimated GFR (MDRD) mL/min Glucose (70-140) mg/dL POC Glucose 173 H 228 H (70-140) mg/dL Lactic Acid (0.4-2.0) mmol/L Calcium (8.7-10.3) mg/dL Total Bilirubin (0.2-1.0) mg/dL AST (15-37) U/L ALT (14-63) U/L Alkaline Phosphatase (46-116) U/L C-Reactive Protein (0.0-0.9) mg/dL Total Protein (6.4-8.2) g/dL Albumin (3.40-5.00) g/dL Triglycerides Cholesterol LDL Cholesterol, Calc HDL Cholesterol Vancomycin Trough 13.3 L (18.0-26.0) ug/mL SARS CoV-2 RNA Rapid LUCERO (NEGATIVE) 08/19/21 08/19/21 Range/Units 07:50 07:50 WBC 11.34 H (5.00-10.00) 10^3/uL RBC 4.08 (3.80-5.50) 10^6/uL Hgb 12.2 (12.0-16.0) g/dL Hct 38.2 (37.0-47.0) % MCV 93.6 H (82.0-92.0) fL MCH 29.9 (27.0-31.0) pg MCHC 31.9 L (32.0-36.0) g/dL RDW 13.7 (11.5-14.5) % Plt Count 266 (150-400) 10^3/uL MPV 9.0 (7.4-10.4) fL Immature Gran % (Auto) 1.9 (0.0-5.0) % Neut % (Auto) 60.5 (50.0-70.0) % Lymph % (Auto) 22.7 (20.0-40.0) % Jewell % (Auto) 9.5 H (2.0-8.0) % Eos % (Auto) 5.1 H (1.0-3.0) % Baso % (Auto) 0.3 (0.0-1.0) % Neut # (Auto) 6.87 (2.50-7.00) 10^3/uL Lymph # (Auto) 2.57 (1.00-4.00) 10^3/uL Jewell # (Auto) 1.08 H (0.10-0.80) 10^3/uL Eos # (Auto) 0.58 H (0.10-0.30) 10^3/uL Baso # (Auto) 0.03 (0.00-0.10) 10^3/uL Immature Gran # (Auto) 0.21 (0.00-0.50) 10^3/uL Sodium 142 (136-145) mmol/L Potassium 5.1 (3.5-5.1) mmol/L Chloride 108 H (98-107) mmol/L Carbon Dioxide 21.9 (21.0-32.0) mmol/L Anion Gap 17.2 H (5-15) mmol/L BUN 14 (7-18) mg/dL Creatinine 0.72 (0.51-1.17) mg/dL Est Cr Clr Drug Dosing 85.56 Estimated GFR (MDRD) > 60 mL/min Glucose 167 H (70-140) mg/dL POC Glucose (70-140) mg/dL Lactic Acid (0.4-2.0) mmol/L Calcium 8.8 (8.7-10.3) mg/dL Total Bilirubin (0.2-1.0) mg/dL AST (15-37) U/L ALT (14-63) U/L Alkaline Phosphatase (46-116) U/L C-Reactive Protein > 11.0 H (0.0-0.9) mg/dL Total Protein (6.4-8.2) g/dL Albumin (3.40-5.00) g/dL Triglycerides Cholesterol LDL Cholesterol, Calc HDL Cholesterol Vancomycin Trough (18.0-26.0) ug/mL SARS CoV-2 RNA Rapid LUCERO (NEGATIVE) [facility] Results Last 24 Hours: Microbiology 08/18/21 07:50 Aerobic Blood Culture - Preliminary Blood - Venous - Lab Draw NO GROWTH AFTER 1 DAY Anaerobic Blood Culture - Preliminary NO GROWTH AFTER 1 DAY 08/17/21 11:00 Aerobic Culture - Preliminary Toe, Left - Left Big Beta Streptococcus Group B Gram Stain - Final 08/17/21 13:25 Aerobic Blood Culture - Preliminary Blood - Venous NO GROWTH AFTER 1 DAY Anaerobic Blood Culture - Preliminary NO GROWTH AFTER 1 DAY Med Orders - Current: Current Medications Acetaminophen (Acetaminophen 325 Mg Tab) 650 mg PO Q4H PRN PRN Reason: Pain (Mild 1-3)/fever Atorvastatin Calcium (Atorvastatin 10 Mg Tab) 10 mg PO DAILY [facility] Last Admin: 08/19/21 08:53 Dose: 10 mg Documented by: Dextrose/Water (50% Dextrose In Water 50 Ml Syringe) 50 ml IVPUSH ASDIRECTED PRN PRN Reason: Hypoglycemia Docusate Sodium (Docusate Sodium 100 Mg Cap) 100 mg PO BID PRN PRN Reason: Constipation Gabapentin (Gabapentin 300 Mg Cap) 1,800 mg PO 1800 [facility] Last Admin: 08/18/21 17:54 Dose: 1,800 mg Documented by: Glucagon (Glucagon,Human Recombinant 1 Mg Vial) 1 mg IM ASDIRECTED PRN PRN Reason: Hypoglycemia Piperacillin Sod/Tazobactam (Sod 4.5 gm/ Sodium Chloride) 100 mls @ 200 mls/hr IV Q8H [facility] Last Admin: 08/19/21 05:35 Dose: 200 mls/hr Documented by: Sodium Chloride (Normal Saline) 250 mls @ 125 mls/hr IV ASDIRECTED [facility] Last Admin: 08/19/21 08:54 Dose: 125 mls/hr Documented by: Vancomycin HCl 1.75 gm/ Sodium (Chloride) 250 mls @ 100 mls/hr IV Q8H [facility] Last Admin: 08/19/21 08:53 Dose: 100 mls/hr Documented by: Ibuprofen (Ibuprofen 400 Mg Tab) 800 mg PO Q6H PRN PRN Reason: Pain Last Admin: 08/19/21 05:26 Dose: 800 mg Documented by: Insulin Aspart (Insulin Aspart 100 Units/Ml 3 Ml Pen) 0 unit SUBCUT WITHMEALSANDBED [facility]; Protocol Last Admin: 08/19/21 11:50 Dose: 4 unit Documented by: Ondansetron HCl (Ondansetron 4 Mg Tab.Dis) 4 mg PO Q4H PRN PRN Reason: nausea, able to take PO Sodium Chloride (Sodium Chloride 0.9% 10 Ml Syringe) 10 ml FLUSH Q8HR PRN PRN Reason: keep vein open Vancomycin HCl (Pharmacy To Dose - Vancomycin) 1 dose .XX DAILY [facility] Discontinued Medications Gabapentin (Gabapentin 300 Mg Cap) 1,200 mg PO BEDTIME [facility] Vancomycin HCl 1.5 gm/ Sodium (Chloride) 250 mls @ 125 mls/hr IV Q8H [facility] Last Admin: 08/18/21 17:54 Dose: Not Given Documented by: - Exam General: Alert, Oriented, Cooperative, No Acute Distress HEENT: Pupils Equal Neck: Supple Lungs: Clear to Auscultation, Normal Respiratory Effort, Decreased Breath Sounds Cardiovascular: Regular Rate, Regular Rhythm GI/Abdominal Exam: Normal Bowel Sounds, Soft, Other (Limited exam due to large pannus) (Female) Exam: Deferred Back Exam: Normal Inspection Extremities: Pedal Edema, Redness, Other (Continued significant irritation ulceration and tissue abnormality of the left great toe.) Skin: Warm, Dry Wound/Incisions: Drainage Neurological: No New Focal Deficit Psy/Mental Status: Alert, Normal Affect, Anxious Physical Findings Comments:: No significant change in the presentation of the left great toe. We do discuss that we are waiting excepting facility for surgical amputation. - Patient Data Lab Results Last 24 hrs: Laboratory Results - last 24 hr 08/17/21 08/17/21 08/17/21 Range/Units 11:00 11:20 11:20 WBC (5.00-10.00) 10^3/uL RBC (3.80-5.50) 10^6/uL Hgb (12.0-16.0) g/dL Hct (37.0-47.0) % MCV (82.0-92.0) fL MCH (27.0-31.0) pg MCHC (32.0-36.0) g/dL RDW (11.5-14.5) % Plt Count (150-400) 10^3/uL MPV (7.4-10.4) fL Immature Gran % (Auto) (0.0-5.0) % Neut % (Auto) (50.0-70.0) % Lymph % (Auto) (20.0-40.0) % Jewell % (Auto) (2.0-8.0) % Eos % (Auto) (1.0-3.0) % Baso % (Auto) (0.0-1.0) % Neut # (Auto) (2.50-7.00) 10^3/uL Lymph # (Auto) (1.00-4.00) 10^3/uL Jewell # (Auto) (0.10-0.80) 10^3/uL Eos # (Auto) (0.10-0.30) 10^3/uL Baso # (Auto) (0.00-0.10) 10^3/uL Immature Gran # (Auto) (0.00-0.50) 10^3/uL Sodium 139 (136-145) mmol/L Potassium 3.9 (3.5-5.1) mmol/L Chloride 103 (98-107) mmol/L Carbon Dioxide 24.0 (21.0-32.0) mmol/L Anion Gap 15.9 H (5-15) mmol/L BUN 18 (7-18) mg/dL Creatinine 0.69 (0.51-1.17) mg/dL Est Cr Clr Drug Dosing TNP Estimated GFR (MDRD) > 60 mL/min Glucose 181 H (70-140) mg/dL POC Glucose (70-140) mg/dL Lactic Acid 2.5 H (0.4-2.0) mmol/L Calcium 9.2 (8.7-10.3) mg/dL Total Bilirubin 0.6 (0.2-1.0) mg/dL AST 12 L (15-37) U/L ALT 22 (14-63) U/L Alkaline Phosphatase 107 (46-116) U/L C-Reactive Protein (0.0-0.9) mg/dL Total Protein 7.9 (6.4-8.2) g/dL Albumin 2.56 L (3.40-5.00) g/dL Triglycerides Cholesterol LDL Cholesterol, Calc HDL Cholesterol Vancomycin Trough (18.0-26.0) ug/mL SARS CoV-2 RNA Rapid LUCERO Negative (NEGATIVE) 08/17/21 08/17/21 08/18/21 Range/Units 11:20 11:20 12:09 WBC 11.52 H (5.00-10.00) 10^3/uL RBC 4.47 (3.80-5.50) 10^6/uL Hgb 13.1 D (12.0-16.0) g/dL Hct 42.1 (37.0-47.0) % MCV 94.2 H (82.0-92.0) fL MCH 29.3 (27.0-31.0) pg MCHC 31.1 L (32.0-36.0) g/dL RDW 13.6 (11.5-14.5) % Plt Count 334 (150-400) 10^3/uL MPV 8.9 (7.4-10.4) fL Immature Gran % (Auto) 1.0 (0.0-5.0) % Neut % (Auto) 69.9 (50.0-70.0) % Lymph % (Auto) 20.1 (20.0-40.0) % Jewell % (Auto) 7.0 (2.0-8.0) % Eos % (Auto) 1.8 (1.0-3.0) % Baso % (Auto) 0.2 (0.0-1.0) % Neut # (Auto) 8.05 H (2.50-7.00) 10^3/uL Lymph # (Auto) 2.32 (1.00-4.00) 10^3/uL Jewell # (Auto) 0.81 H (0.10-0.80) 10^3/uL Eos # (Auto) 0.21 (0.10-0.30) 10^3/uL Baso # (Auto) 0.02 (0.00-0.10) 10^3/uL Immature Gran # (Auto) 0.11 (0.00-0.50) 10^3/uL Sodium (136-145) mmol/L Potassium (3.5-5.1) mmol/L Chloride (98-107) mmol/L Carbon Dioxide (21.0-32.0) mmol/L Anion Gap (5-15) mmol/L BUN (7-18) mg/dL Creatinine (0.51-1.17) mg/dL Est Cr Clr Drug Dosing Estimated GFR (MDRD) mL/min Glucose (70-140) mg/dL POC Glucose 192 H (70-140) mg/dL Lactic Acid (0.4-2.0) mmol/L Calcium (8.7-10.3) mg/dL Total Bilirubin (0.2-1.0) mg/dL AST (15-37) U/L ALT (14-63) U/L Alkaline Phosphatase (46-116) U/L C-Reactive Protein 13.6 H (0.0-0.9) mg/dL Total Protein (6.4-8.2) g/dL Albumin (3.40-5.00) g/dL Triglycerides Cancelled Cholesterol Cancelled LDL Cholesterol, Calc Cancelled HDL Cholesterol Cancelled Vancomycin Trough (18.0-26.0) ug/mL SARS CoV-2 RNA Rapid LUCERO (NEGATIVE) 08/18/21 08/18/21 08/18/21 Range/Units 15:35 17:45 20:06 WBC (5.00-10.00) 10^3/uL RBC (3.80-5.50) 10^6/uL Hgb (12.0-16.0) g/dL Hct (37.0-47.0) % MCV (82.0-92.0) fL MCH (27.0-31.0) pg MCHC (32.0-36.0) g/dL RDW (11.5-14.5) % Plt Count (150-400) 10^3/uL MPV (7.4-10.4) fL Immature Gran % (Auto) (0.0-5.0) % Neut % (Auto) (50.0-70.0) % Lymph % (Auto) (20.0-40.0) % Jewell % (Auto) (2.0-8.0) % Eos % (Auto) (1.0-3.0) % Baso % (Auto) (0.0-1.0) % Neut # (Auto) (2.50-7.00) 10^3/uL Lymph # (Auto) (1.00-4.00) 10^3/uL Jewell # (Auto) (0.10-0.80) 10^3/uL Eos # (Auto) (0.10-0.30) 10^3/uL Baso # (Auto) (0.00-0.10) 10^3/uL Immature Gran # (Auto) (0.00-0.50) 10^3/uL Sodium (136-145) mmol/L Potassium (3.5-5.1) mmol/L Chloride (98-107) mmol/L Carbon Dioxide (21.0-32.0) mmol/L Anion Gap (5-15) mmol/L BUN (7-18) mg/dL Creatinine (0.51-1.17) mg/dL Est Cr Clr Drug Dosing Estimated GFR (MDRD) mL/min Glucose (70-140) mg/dL POC Glucose 173 H 228 H (70-140) mg/dL Lactic Acid (0.4-2.0) mmol/L Calcium (8.7-10.3) mg/dL Total Bilirubin (0.2-1.0) mg/dL AST (15-37) U/L ALT (14-63) U/L Alkaline Phosphatase (46-116) U/L C-Reactive Protein (0.0-0.9) mg/dL Total Protein (6.4-8.2) g/dL Albumin (3.40-5.00) g/dL Triglycerides Cholesterol LDL Cholesterol, Calc HDL Cholesterol Vancomycin Trough 13.3 L (18.0-26.0) ug/mL SARS CoV-2 RNA Rapid LUCERO (NEGATIVE) 08/19/21 08/19/21 Range/Units 07:50 07:50 WBC 11.34 H (5.00-10.00) 10^3/uL RBC 4.08 (3.80-5.50) 10^6/uL Hgb 12.2 (12.0-16.0) g/dL Hct 38.2 (37.0-47.0) % MCV 93.6 H (82.0-92.0) fL MCH 29.9 (27.0-31.0) pg MCHC 31.9 L (32.0-36.0) g/dL RDW 13.7 (11.5-14.5) % Plt Count 266 (150-400) 10^3/uL MPV 9.0 (7.4-10.4) fL Immature Gran % (Auto) 1.9 (0.0-5.0) % Neut % (Auto) 60.5 (50.0-70.0) % Lymph % (Auto) 22.7 (20.0-40.0) % Jewell % (Auto) 9.5 H (2.0-8.0) % Eos % (Auto) 5.1 H (1.0-3.0) % Baso % (Auto) 0.3 (0.0-1.0) % Neut # (Auto) 6.87 (2.50-7.00) 10^3/uL Lymph # (Auto) 2.57 (1.00-4.00) 10^3/uL Jewell # (Auto) 1.08 H (0.10-0.80) 10^3/uL Eos # (Auto) 0.58 H (0.10-0.30) 10^3/uL Baso # (Auto) 0.03 (0.00-0.10) 10^3/uL Immature Gran # (Auto) 0.21 (0.00-0.50) 10^3/uL Sodium 142 (136-145) mmol/L Potassium 5.1 (3.5-5.1) mmol/L Chloride 108 H (98-107) mmol/L Carbon Dioxide 21.9 (21.0-32.0) mmol/L Anion Gap 17.2 H (5-15) mmol/L BUN 14 (7-18) mg/dL Creatinine 0.72 (0.51-1.17) mg/dL Est Cr Clr Drug Dosing 85.56 Estimated GFR (MDRD) > 60 mL/min Glucose 167 H (70-140) mg/dL POC Glucose (70-140) mg/dL Lactic Acid (0.4-2.0) mmol/L Calcium 8.8 (8.7-10.3) mg/dL Total Bilirubin (0.2-1.0) mg/dL AST (15-37) U/L ALT (14-63) U/L Alkaline Phosphatase (46-116) U/L C-Reactive Protein > 11.0 H (0.0-0.9) mg/dL Total Protein (6.4-8.2) g/dL Albumin (3.40-5.00) g/dL Triglycerides Cholesterol LDL Cholesterol, Calc HDL Cholesterol Vancomycin Trough (18.0-26.0) ug/mL SARS CoV-2 RNA Rapid LUCERO (NEGATIVE) Result Diagrams: 08/19/21 07:50 08/19/21 07:50 [facility] Results Last 24 hrs: Microbiology 08/18/21 07:50 Aerobic Blood Culture - Preliminary Blood - Venous - Lab Draw NO GROWTH AFTER 1 DAY Anaerobic Blood Culture - Preliminary NO GROWTH AFTER 1 DAY 08/17/21 11:00 Aerobic Culture - Preliminary Toe, Left - Left Big Beta Streptococcus Group B Gram Stain - Final 08/17/21 13:25 Aerobic Blood Culture - Preliminary Blood - Venous NO GROWTH AFTER 1 DAY Anaerobic Blood Culture - Preliminary NO GROWTH AFTER 1 DAY Sepsis Event Note - Evaluation Sepsis Screening Result: No Definite Risk - Focused Exam Vital Signs: Vital Signs Temp Pulse Resp BP Pulse Ox 08/19/21 06:14 97.5 F 85 20 151/89 H 95 - Problem List & Annotations (1) Diabetes 1.5, managed as type 2 SNOMED Code(s): 061730349 Code(s): E13.9 - OTHER SPECIFIED DIABETES MELLITUS WITHOUT COMPLICATIONS Status: Chronic Priority: High Current Visit: Yes (2) Obesity (BMI 30-39.9) SNOMED Code(s): 490261516, 287048592 Code(s): E66.9 - OBESITY, UNSPECIFIED Status: Chronic Priority: High Current Visit: Yes (3) Skin ulcer of left great toe SNOMED Code(s): 149101409 Code(s): L97.529 - NON-PRESSURE CHRONIC ULCER OTH PRT LEFT FOOT W UNSP SEVERITY Status: Acute Priority: High Current Visit: Yes Qualifiers: Non-pressure ulcer stage: with necrosis of bone Qualified Code(s): L97.524 - Non-pressure chronic ulcer of other part of left foot with necrosis of bone (4) Abrasion of great toe, left, infected SNOMED Code(s): 68936851895535018 Code(s): S90.412A - ABRASION, LEFT GREAT TOE, INITIAL ENCOUNTER; L08.9 - LOCAL INFECTION OF THE SKIN AND SUBCUTANEOUS TISSUE, UNSP Status: Acute Priority: High Current Visit: Yes Qualifiers: Encounter type: initial encounter Qualified Code(s): S90.412A - Abrasion, left great toe, initial encounter; L08.9 - Local infection of the skin and subcutaneous tissue, unspecified (5) Osteomyelitis of toe of left foot SNOMED Code(s): 841622307, 388599210, 1361411960523523 Code(s): M86.9 - OSTEOMYELITIS, UNSPECIFIED Status: Acute Priority: High Current Visit: Yes (6) UTI (urinary tract infection) SNOMED Code(s): 87194532 Code(s): N39.0 - URINARY TRACT INFECTION, SITE NOT SPECIFIED Status: Acute Current Visit: Yes Qualifiers: Urinary tract infection type: acute cystitis Hematuria presence: with hematuria Qualified Code(s): N30.01 - Acute cystitis with hematuria - Problem List Review Problem List Initiated/Reviewed/Updated: Yes - My Orders Last 24 Hours: My Active Orders 08/18/21 16:00 Vancomycin 1.75 gm Sodium Chloride 0.9% [Normal Saline] 250 ml IV Q8H - Assessment Assessment:: Admission Diagnoses: Left great toe infection with underlying osteomyelitis - Vancomycin, pharm to dose - Zosyn 4.5 grams IV z 8 hours - Await transfer to [facility] vs. [facility] on (08/20) transfer as an outpatient for same day amputation at [facility] Diabetes: - Hold Glipizide - Hold metformin - Insulin Aspart per sliding scale Secondary Diagnoses: Hyperlipidemia - Atorvastatin 10 mg PO daily Diabetic neuropathy - Gabapentin 600 mg PO q AM and 1,200 mg PO q PM CODE STATUS: Full Code - Plan Plan:: We will continue antibiotic with adjustment per pharmacy as trough was low. For the vancomycin. I discussed in detail with Ruma that we are still awaiting for a facility to accept as [facility] has is on a waiting list with no bed space avail ability. [facility] in [place] may be able to accept as an outpatient procedure as the to have no bed space for admission. We are working on arrangements for this at this time and I do advise Ruma that she would need to go by private vehicle from the facility here as she would be discharged if it was to be an outpatient procedure in [facility]. She states that her does not drive and she is unsur e if her friend in the community would be able to do so. She does have a daughter in [place] on his sister I believe in [place] that may be able to assist.
[2021-08-19] MEDS: Gabapentin 300 MG Cap PO SCH (17:48)
[2021-08-19] MEDS: Acetaminophen 325 MG Tab PO PRN (19:37)
[2021-08-20] MEDS: Ibuprofen 400 MG Tab PO PRN ×2 (03:55→15:07)
[2021-08-20] MEDS: Piperacillin/Tazobactam 4.5 GM in Sodium Chloride 0.9% 100 ML IV SCH ×4 (05:45→21:48)
[2021-08-20] MEDS: Sodium Chloride 0.9% 250 ML IV SCH ×2 (05:45→08:49)
[2021-08-20] MEDS: Insulin Aspart 100 Units/ML 3 ML Pen SUBCUT SCH ×4 (07:58→21:15)
[2021-08-20] MEDS: atorvaSTATin 10 MG Tab PO SCH (08:49)
[2021-08-20 09:08] LABS: SODIUM,NA 140 mmol/L (136-145)
[2021-08-20 09:09] LABS: ANION GAP 19.6 mmol/L (5-15); CHLORIDE,CL 107 mmol/L (98-115)
[2021-08-20] MEDS ORDERED: Sodium Polystyrene Sulfonate 15 GM/60 ML Susp 60 ML Bot PO ONE (12:38)
[2021-08-20] MEDS: Gabapentin 300 MG Cap PO SCH (18:15)
--- NOTE | 2021-08-20 18:53 | PCM.PN ---
- General Info Date of Service: 08/20/21 Admission Dx/Problem (Free Text): LEFT great toe infection with osteomyelitis. Subjective Update: Ruma has been overall doing well with no major complaints. She is tolerating the antibiotic with no sequela but otherwise. Appetite is maintained. She states she is concerned over the fact that no facility is available for the Amputation process due to her osteomyelitis. She states she is anxiously awaiting to find out what will be taking place over the course of the next 2 days. Functional Status: Reports: Pain Controlled - Review of Systems General: Reports: No Symptoms HEENT: Reports: No Symptoms Pulmonary: Reports: No Symptoms Cardiovascular: Reports: No Symptoms Gastrointestinal: Reports: No Symptoms Genitourinary: Reports: No Symptoms Musculoskeletal: Reports: No Symptoms (Left great toe), Other Skin: Reports: Other (Left great toe) Neurological: Reports: No Symptoms Psychiatric: Reports: No Symptoms - Patient Data Vitals - Most Recent: Last Vital Signs Temp 98.2 F 08/20/21 15:00 Pulse 75 08/20/21 15:00 Resp 24 H 08/20/21 15:00 BP 185/96 H 08/20/21 15:00 Pulse Ox 96 08/20/21 15:00 Weight - Most Recent: 431 lb 8 oz I&O - Last 24 Hours: Intake & Output 08/20/21 08/20/21 08/20/21 06:59 14:59 22:59 Intake Total 720 480 200 Balance 720 480 200 Lab Results Last 24 Hours: Laboratory Results - last 24 hr 08/19/21 08/20/21 08/20/21 Range/Units 20:43 07:30 07:30 WBC 11.13 H (5.00-10.00) 10^3/uL RBC 3.84 (3.80-5.50) 10^6/uL Hgb 11.4 L (12.0-16.0) g/dL Hct 35.8 L (37.0-47.0) % MCV 93.2 H (82.0-92.0) fL MCH 29.7 (27.0-31.0) pg MCHC 31.8 L (32.0-36.0) g/dL RDW 13.7 (11.5-14.5) % Plt Count 296 (150-400) 10^3/uL MPV 8.9 (7.4-10.4) fL Immature Gran % (Auto) 2.1 (0.0-5.0) % Neut % (Auto) 59.6 (50.0-70.0) % Lymph % (Auto) 24.2 (20.0-40.0) % [place] % (Auto) 8.1 H (2.0-8.0) % Eos % (Auto) 5.6 H (1.0-3.0) % Baso % (Auto) 0.4 (0.0-1.0) % Neut # (Auto) 6.65 (2.50-7.00) 10^3/uL Lymph # (Auto) 2.69 (1.00-4.00) 10^3/uL [place] # (Auto) 0.90 H (0.10-0.80) 10^3/uL Eos # (Auto) 0.62 H (0.10-0.30) 10^3/uL Baso # (Auto) 0.04 (0.00-0.10) 10^3/uL Immature Gran # (Auto) 0.23 (0.00-0.50) 10^3/uL Sodium 140 (136-145) mmol/L Potassium 5.4 H D (3.3-5.3) mmol/L Chloride 107 (98-115) mmol/L Carbon Dioxide 18.8 L (21.0-32.0) mmol/L Anion Gap 19.6 H (5-15) mmol/L BUN 15 (6-25) mg/dL Creatinine 0.76 (0.51-1.17) mg/dL Est Cr Clr Drug Dosing 81.06 mL/min Estimated GFR (MDRD) > 60 mL/min Glucose 183 H (75 - 99) mg/dL POC Glucose 211 H (70-140) mg/dL Calcium 8.7 (8.7-10.3) mg/dL Vancomycin Trough (10-20) ug/mL 08/20/21 08/20/21 08/20/21 Range/Units 07:30 07:54 15:40 WBC (5.00-10.00) 10^3/uL RBC (3.80-5.50) 10^6/uL Hgb (12.0-16.0) g/dL Hct (37.0-47.0) % MCV (82.0-92.0) fL MCH (27.0-31.0) pg MCHC (32.0-36.0) g/dL RDW (11.5-14.5) % Plt Count (150-400) 10^3/uL MPV (7.4-10.4) fL Immature Gran % (Auto) (0.0-5.0) % Neut % (Auto) (50.0-70.0) % Lymph % (Auto) (20.0-40.0) % [place] % (Auto) (2.0-8.0) % Eos % (Auto) (1.0-3.0) % Baso % (Auto) (0.0-1.0) % Neut # (Auto) (2.50-7.00) 10^3/uL Lymph # (Auto) (1.00-4.00) 10^3/uL [place] # (Auto) (0.10-0.80) 10^3/uL Eos # (Auto) (0.10-0.30) 10^3/uL Baso # (Auto) (0.00-0.10) 10^3/uL Immature Gran # (Auto) (0.00-0.50) 10^3/uL Sodium (136-145) mmol/L Potassium (3.3-5.3) mmol/L Chloride (98-115) mmol/L Carbon Dioxide (21.0-32.0) mmol/L Anion Gap (5-15) mmol/L BUN (6-25) mg/dL Creatinine (0.51-1.17) mg/dL Est Cr Clr Drug Dosing mL/min Estimated GFR (MDRD) mL/min Glucose (75 - 99) mg/dL POC Glucose 163 H (70-140) mg/dL Calcium (8.7-10.3) mg/dL Vancomycin Trough 22.9 H* 15.0 L (10-20) ug/mL [facility] Results Last 24 Hours: Microbiology 08/17/21 13:25 Aerobic Blood Culture - Preliminary Blood - Venous NO GROWTH AFTER 3 DAYS Anaerobic Blood Culture - Preliminary NO GROWTH AFTER 3 DAYS 08/18/21 07:50 Aerobic Blood Culture - Preliminary Blood - Venous - Lab Draw NO GROWTH AFTER 2 DAYS Anaerobic Blood Culture - Preliminary NO GROWTH AFTER 2 DAYS Med Orders - Current: Current Medications Acetaminophen (Acetaminophen 325 Mg Tab) 650 mg PO Q4H PRN PRN Reason: Pain (Mild 1-3)/fever Last Admin: 08/19/21 19:37 Dose: 650 mg Documented by: Atorvastatin Calcium (Atorvastatin 10 Mg Tab) 10 mg PO DAILY [facility] Last Admin: 08/20/21 08:49 Dose: 10 mg Documented by: Dextrose/Water (50% Dextrose In Water 50 Ml Syringe) 50 ml IVPUSH ASDIRECTED PRN PRN Reason: Hypoglycemia Docusate Sodium (Docusate Sodium 100 Mg Cap) 100 mg PO BID PRN PRN Reason: Constipation Gabapentin (Gabapentin 300 Mg Cap) 1,800 mg PO 1800 [facility] Last Admin: 08/20/21 18:15 Dose: 1,800 mg Documented by: Glucagon (Glucagon,Human Recombinant 1 Mg Vial) 1 mg IM ASDIRECTED PRN PRN Reason: Hypoglycemia Piperacillin Sod/Tazobactam (Sod 4.5 gm/ Sodium Chloride) 100 mls @ 200 mls/hr IV Q8H [facility] Last Admin: 08/20/21 15:07 Dose: 200 mls/hr Documented by: Sodium Chloride (Normal Saline) 250 mls @ 125 mls/hr IV ASDIRECTED [facility] Last Admin: 08/20/21 08:49 Dose: 125 mls/hr Documented by: Ibuprofen (Ibuprofen 400 Mg Tab) 800 mg PO Q6H PRN PRN Reason: Pain Last Admin: 08/20/21 15:07 Dose: 800 mg Documented by: Insulin Aspart (Insulin Aspart 100 Units/Ml 3 Ml Pen) 0 unit SUBCUT WITHMEALSANDBED [facility]; Protocol Last Admin: 08/20/21 18:16 Dose: 4 unit Documented by: Ondansetron HCl (Ondansetron 4 Mg Tab.Dis) 4 mg PO Q4H PRN PRN Reason: nausea, able to take PO Sodium Chloride (Sodium Chloride 0.9% 10 Ml Syringe) 10 ml FLUSH Q8HR PRN PRN Reason: keep vein open Vancomycin HCl (Pharmacy To Dose - Vancomycin) 1 dose .XX DAILY [facility] Discontinued Medications Gabapentin (Gabapentin 300 Mg Cap) 1,200 mg PO BEDTIME [facility] Vancomycin HCl 1.5 gm/ Sodium (Chloride) 250 mls @ 125 mls/hr IV Q8H [facility] Last Admin: 08/18/21 17:54 Dose: Not Given Documented by: Vancomycin HCl 1.75 gm/ Sodium (Chloride) 250 mls @ 100 mls/hr IV Q8H [facility] Last Admin: 08/20/21 08:48 Dose: 100 mls/hr Documented by: Sodium Polystyrene Sulfonate (Sodium Polystyrene Sulfonate 15 Gm/60 Ml Susp 60 Ml Bot) 15 gm PO ONETIME ONE Stop: 08/20/21 12:39 Last Admin: 08/20/21 12:57 Dose: 15 gm Documented by: - Exam General: Alert, Oriented HEENT: Pupils Equal, Pupils Reactive Neck: Supple Lungs: Clear to Auscultation, Normal Respiratory Effort, Decreased Breath Sounds Cardiovascular: Regular Rate, Regular Rhythm GI/Abdominal Exam: Normal Bowel Sounds, Soft, Non-Tender (Female) Exam: Deferred Back Exam: Normal Inspection Extremities: Pedal Edema, Other ( left great toe wound with underlying osteomyelitis.) Skin: Warm, Dry. No: Intact Wound/Incisions: Drainage. No: Healing Well Neurological: No New Focal Deficit Psy/Mental Status: Alert, Normal Affect, Normal Mood Physical Findings Comments:: Today Ruma his white count dropped to 11.15 with no shift. Her potassium unfortunately increased likely due to the Vanco Zosyn combination. Pharmacology will be dosing this as trough was slightly elevated and the trough will be repeated again this afternoon. Is noted that her CRP has decreased since admission. She is resting comfortably anxiously awaiting transfer for procedure where yet to be able to be accepted at [facility] in [place] nor at in [place]. - Patient Data Lab Results Last 24 hrs: Laboratory Results - last 24 hr 08/19/21 08/20/21 08/20/21 Range/Units 20:43 07:30 07:30 WBC 11.13 H (5.00-10.00) 10^3/uL RBC 3.84 (3.80-5.50) 10^6/uL Hgb 11.4 L (12.0-16.0) g/dL Hct 35.8 L (37.0-47.0) % MCV 93.2 H (82.0-92.0) fL MCH 29.7 (27.0-31.0) pg MCHC 31.8 L (32.0-36.0) g/dL RDW 13.7 (11.5-14.5) % Plt Count 296 (150-400) 10^3/uL MPV 8.9 (7.4-10.4) fL Immature Gran % (Auto) 2.1 (0.0-5.0) % Neut % (Auto) 59.6 (50.0-70.0) % Lymph % (Auto) 24.2 (20.0-40.0) % [place] % (Auto) 8.1 H (2.0-8.0) % Eos % (Auto) 5.6 H (1.0-3.0) % Baso % (Auto) 0.4 (0.0-1.0) % Neut # (Auto) 6.65 (2.50-7.00) 10^3/uL Lymph # (Auto) 2.69 (1.00-4.00) 10^3/uL [place] # (Auto) 0.90 H (0.10-0.80) 10^3/uL Eos # (Auto) 0.62 H (0.10-0.30) 10^3/uL Baso # (Auto) 0.04 (0.00-0.10) 10^3/uL Immature Gran # (Auto) 0.23 (0.00-0.50) 10^3/uL Sodium 140 (136-145) mmol/L Potassium 5.4 H D (3.3-5.3) mmol/L Chloride 107 (98-115) mmol/L Carbon Dioxide 18.8 L (21.0-32.0) mmol/L Anion Gap 19.6 H (5-15) mmol/L BUN 15 (6-25) mg/dL Creatinine 0.76 (0.51-1.17) mg/dL Est Cr Clr Drug Dosing 81.06 mL/min Estimated GFR (MDRD) > 60 mL/min Glucose 183 H (75 - 99) mg/dL POC Glucose 211 H (70-140) mg/dL Calcium 8.7 (8.7-10.3) mg/dL Vancomycin Trough (10-20) ug/mL 08/20/21 08/20/21 08/20/21 Range/Units 07:30 07:54 15:40 WBC (5.00-10.00) 10^3/uL RBC (3.80-5.50) 10^6/uL Hgb (12.0-16.0) g/dL Hct (37.0-47.0) % MCV (82.0-92.0) fL MCH (27.0-31.0) pg MCHC (32.0-36.0) g/dL RDW (11.5-14.5) % Plt Count (150-400) 10^3/uL MPV (7.4-10.4) fL Immature Gran % (Auto) (0.0-5.0) % Neut % (Auto) (50.0-70.0) % Lymph % (Auto) (20.0-40.0) % [place] % (Auto) (2.0-8.0) % Eos % (Auto) (1.0-3.0) % Baso % (Auto) (0.0-1.0) % Neut # (Auto) (2.50-7.00) 10^3/uL Lymph # (Auto) (1.00-4.00) 10^3/uL [place] # (Auto) (0.10-0.80) 10^3/uL Eos # (Auto) (0.10-0.30) 10^3/uL Baso # (Auto) (0.00-0.10) 10^3/uL Immature Gran # (Auto) (0.00-0.50) 10^3/uL Sodium (136-145) mmol/L Potassium (3.3-5.3) mmol/L Chloride (98-115) mmol/L Carbon Dioxide (21.0-32.0) mmol/L Anion Gap (5-15) mmol/L BUN (6-25) mg/dL Creatinine (0.51-1.17) mg/dL Est Cr Clr Drug Dosing mL/min Estimated GFR (MDRD) mL/min Glucose (75 - 99) mg/dL POC Glucose 163 H (70-140) mg/dL Calcium (8.7-10.3) mg/dL Vancomycin Trough 22.9 H* 15.0 L (10-20) ug/mL Result Diagrams: 08/20/21 07:30 08/20/21 07:30 [facility] Results Last 24 hrs: Microbiology 08/17/21 13:25 Aerobic Blood Culture - Preliminary Blood - Venous NO GROWTH AFTER 3 DAYS Anaerobic Blood Culture - Preliminary NO GROWTH AFTER 3 DAYS 08/18/21 07:50 Aerobic Blood Culture - Preliminary Blood - Venous - Lab Draw NO GROWTH AFTER 2 DAYS Anaerobic Blood Culture - Preliminary NO GROWTH AFTER 2 DAYS Sepsis Event Note - Evaluation Sepsis Screening Result: No Definite Risk - Focused Exam Vital Signs: Vital Signs Temp Pulse Resp BP Pulse Ox 08/20/21 15:00 98.2 F 75 24 H 185/96 H 96 - Problem List & Annotations (1) Diabetes 1.5, managed as type 2 SNOMED Code(s): 917915609 Code(s): E13.9 - OTHER SPECIFIED DIABETES MELLITUS WITHOUT COMPLICATIONS Status: Chronic Priority: High Current Visit: Yes (2) Obesity (BMI 30-39.9) SNOMED Code(s): 434537658, 569352053 Code(s): E66.9 - OBESITY, UNSPECIFIED Status: Chronic Priority: High Current Visit: Yes (3) Skin ulcer of left great toe SNOMED Code(s): 751655078 Code(s): L97.529 - NON-PRESSURE CHRONIC ULCER OTH PRT LEFT FOOT W UNSP SEVERITY Status: Acute Priority: High Current Visit: Yes Qualifiers: Non-pressure ulcer stage: with necrosis of bone Qualified Code(s): L97.524 - Non-pressure chronic ulcer of other part of left foot with necrosis of bone (4) Abrasion of great toe, left, infected SNOMED Code(s): 88827671494880964 Code(s): S90.412A - ABRASION, LEFT GREAT TOE, INITIAL ENCOUNTER; L08.9 - LOCAL INFECTION OF THE SKIN AND SUBCUTANEOUS TISSUE, UNSP Status: Acute Priority: High Current Visit: Yes Qualifiers: Encounter type: initial encounter Qualified Code(s): S90.412A - Abrasion, left great toe, initial encounter; L08.9 - Local infection of the skin and subcutaneous tissue, unspecified (5) Osteomyelitis of toe of left foot SNOMED Code(s): 338531082, 649706205, [id number] Code(s): M86.9 - OSTEOMYELITIS, UNSPECIFIED Status: Acute Priority: High Current Visit: Yes - Problem List Review Problem List Initiated/Reviewed/Updated: Yes - Assessment Assessment:: Admission Diagnoses: Left great toe infection with underlying osteomyelitis - Vancomycin, pharm to dose - Zosyn 4.5 grams IV z 8 hours - Await [facility] transfer as an outpatient for same day amputation at [facility] Diabetes: - Hold Glipizide - Hold metformin - Insulin Aspart per sliding scale Secondary Diagnoses: Hyperlipidemia - Atorvastatin 10 mg PO daily Diabetic neuropathy - Gabapentin 600 mg PO q AM and 1,200 mg PO q PM CODE STATUS: Full Code - Plan Plan:: We will continue antibiotic with adjustment per pharmacy as trough was low. For the vancomycin. I discussed in detail with Ruma that we are still awaiting for a facility to accept as [facility] has is on a waiting list with no bed space availability. [facility] in [place] may be able to accept as an outpatient procedure as the to have no bed space for admission. We are working on arrangements for this at this time and I do advise Ruma that she would need to go by private vehicle from the facility here as she would be discharged if it was to be an outpatient procedure in [facility]. Kayexalate will be given today secondary of the increase in her potassium and we will recheck tomorrow. Vancomycin trough was elevated but recheck this afternoon to be at 15 and awaiting for telepharmacy to restart the vancomycin dosing. Adriana Violetta was contacted over IV access and we do agree that we should not be placing a PICC line knowing that she will be transferred as liability issues for any other type of infection that would be found in a recently placed PICC prior to transport. Will continue to examine for good IV access and hopefully be able to transfer in the next 24 hours as essentially called us today stating that it was looking more promising but would most likely not to be as essentially called us today stating that it was looking more promising but would most likely not to be late Tuesday evening or Tuesday morning if at all this week.
[2021-08-20] MEDS: Acetaminophen 325 MG Tab PO PRN (19:52)
[2021-08-21] MEDS: Ibuprofen 400 MG Tab PO PRN ×3 (04:13→20:42)
[2021-08-21] MEDS: Acetaminophen 325 MG Tab PO PRN ×2 (06:22→12:01)
[2021-08-21] MEDS: Piperacillin/Tazobactam 4.5 GM in Sodium Chloride 0.9% 100 ML IV SCH ×3 (07:22→21:30)
[2021-08-21 07:58] LABS: ANION GAP 14.8 mmol/L (5-15); CHLORIDE,CL 109 mmol/L (98-107)
[2021-08-21 08:12] LABS: SODIUM,NA 143 mmol/L (136-145)
[2021-08-21] MEDS: atorvaSTATin 10 MG Tab PO SCH (08:22)
[2021-08-21] MEDS: Insulin Aspart 100 Units/ML 3 ML Pen SUBCUT SCH ×4 (08:24→21:01)
[2021-08-21] MEDS ORDERED: Sodium Polystyrene Sulfonate 15 GM/60 ML Susp 60 ML Bot PO ONE (08:57)
[2021-08-21] MEDS: Hydrochlorothiazide 25 MG Tab PO SCH (09:27)
[2021-08-21] MEDS: Sodium Chloride 0.9% 250 ML IV SCH (15:25)
--- NOTE | 2021-08-21 16:29 | PCM.PN ---
- General Info Date of Service: 08/21/21 Admission Dx/Problem (Free Text): LEFT great toe infection with osteomyelitis. - Review of Systems Systems Review Comment:: Ruma is seen today in inpatient rounds. She states she has a headache this morning and attributes that to the hospital bed she is sleeping in. She had hyperkalemia yesterday (5.4) and was given kayexelate 15 grams PO x 1 and this AM her potassium is actually higher at 5.5. She will receive another 15 grams of kayexelate. As of this morning (08/21) she was #4 on the waiting list for a bed for definitive treatment of her osteomyelitis with amputation of the great toe on the left. Cultures are returning and she is not growing MRSA and so vancomycin will be discontinued and Zosyn will continue. She has no other questions or concerns today. She is anxious for definitive therapy. - Patient Data Vitals - Most Recent: Last Vital Signs Temp 97.1 F 08/21/21 15:00 Pulse 72 08/21/21 15:00 Resp 16 08/21/21 15:00 BP 175/94 H 08/21/21 15:00 Pulse Ox 97 08/21/21 15:00 Weight - Most Recent: 431 lb 8 oz I&O - Last 24 Hours: Intake & Output 08/21/21 08/21/21 08/21/21 06:59 14:59 22:59 Intake Total 1005 500 Balance 1005 500 Lab Results Last 24 Hours: Laboratory Results - last 24 hr 08/20/21 08/21/21 08/21/21 Range/Units 21:06 07:30 07:30 WBC 10.13 H (5.00-10.00) 10^3/uL RBC 3.76 L (3.80-5.50) 10^6/uL Hgb 11.1 L (12.0-16.0) g/dL Hct 34.3 L (37.0-47.0) % MCV 91.2 (82.0-92.0) fL MCH 29.5 (27.0-31.0) pg MCHC 32.4 (32.0-36.0) g/dL RDW 13.6 (11.5-14.5) % Plt Count 280 (150-400) 10^3/uL MPV 9.1 (7.4-10.4) fL Immature Gran % (Auto) 1.8 (0.0-5.0) % Neut % (Auto) 58.7 (50.0-70.0) % Lymph % (Auto) 25.7 (20.0-40.0) % Letcher % (Auto) 6.9 (2.0-8.0) % Eos % (Auto) 6.6 H (1.0-3.0) % Baso % (Auto) 0.3 (0.0-1.0) % Neut # (Auto) 5.95 (2.50-7.00) 10^3/uL Lymph # (Auto) 2.60 (1.00-4.00) 10^3/uL Letcher # (Auto) 0.70 (0.10-0.80) 10^3/uL Eos # (Auto) 0.67 H (0.10-0.30) 10^3/uL Baso # (Auto) 0.03 (0.00-0.10) 10^3/uL Immature Gran # (Auto) 0.18 (0.00-0.50) 10^3/uL Platelet Estimate Adequate Clumped Platelets Rare Sodium 143 (136-145) mmol/L Potassium 5.5 H (3.5-5.1) mmol/L Chloride 109 H (98-107) mmol/L Carbon Dioxide 24.7 (21.0-32.0) mmol/L Anion Gap 14.8 (5-15) mmol/L BUN 17 (7-18) mg/dL Creatinine 0.69 (0.51-1.17) mg/dL Est Cr Clr Drug Dosing 89.28 mL/min Estimated GFR (MDRD) > 60 mL/min Glucose 168 H (70-140) mg/dL POC Glucose 251 H (70-140) mg/dL Calcium 8.8 (8.7-10.3) mg/dL 08/21/21 08/21/21 Range/Units 07:32 11:53 WBC (5.00-10.00) 10^3/uL RBC (3.80-5.50) 10^6/uL Hgb (12.0-16.0) g/dL Hct (37.0-47.0) % MCV (82.0-92.0) fL MCH (27.0-31.0) pg MCHC (32.0-36.0) g/dL RDW (11.5-14.5) % Plt Count (150-400) 10^3/uL MPV (7.4-10.4) fL Immature Gran % (Auto) (0.0-5.0) % Neut % (Auto) (50.0-70.0) % Lymph % (Auto) (20.0-40.0) % Letcher % (Auto) (2.0-8.0) % Eos % (Auto) (1.0-3.0) % Baso % (Auto) (0.0-1.0) % Neut # (Auto) (2.50-7.00) 10^3/uL Lymph # (Auto) (1.00-4.00) 10^3/uL Letcher # (Auto) (0.10-0.80) 10^3/uL Eos # (Auto) (0.10-0.30) 10^3/uL Baso # (Auto) (0.00-0.10) 10^3/uL Immature Gran # (Auto) (0.00-0.50) 10^3/uL Platelet Estimate Clumped Platelets Sodium (136-145) mmol/L Potassium (3.5-5.1) mmol/L Chloride (98-107) mmol/L Carbon Dioxide (21.0-32.0) mmol/L Anion Gap (5-15) mmol/L BUN (7-18) mg/dL Creatinine (0.51-1.17) mg/dL Est Cr Clr Drug Dosing mL/min Estimated GFR (MDRD) mL/min Glucose (70-140) mg/dL POC Glucose 145 H 196 H (70-140) mg/dL Calcium (8.7-10.3) mg/dL [facility] Results Last 24 Hours: Microbiology 08/17/21 13:25 Aerobic Blood Culture - Preliminary Blood - Venous NO GROWTH AFTER 4 DAYS Anaerobic Blood Culture - Preliminary NO GROWTH AFTER 4 DAYS 08/18/21 07:50 Aerobic Blood Culture - Preliminary Blood - Venous - Lab Draw NO GROWTH AFTER 3 DAYS Anaerobic Blood Culture - Preliminary NO GROWTH AFTER 3 DAYS Med Orders - Current: Current Medications Acetaminophen (Acetaminophen 325 Mg Tab) 650 mg PO Q4H PRN PRN Reason: Pain (Mild 1-3)/fever Last Admin: 08/21/21 12:01 Dose: 650 mg Documented by: Atorvastatin Calcium (Atorvastatin 10 Mg Tab) 10 mg PO DAILY [facility] Last Admin: 08/21/21 08:22 Dose: 10 mg Documented by: Dextrose/Water (50% Dextrose In Water 50 Ml Syringe) 50 ml IVPUSH ASDIRECTED PRN PRN Reason: Hypoglycemia Docusate Sodium (Docusate Sodium 100 Mg Cap) 100 mg PO BID PRN PRN Reason: Constipation Gabapentin (Gabapentin 300 Mg Cap) 1,800 mg PO 1800 [facility] Last Admin: 08/20/21 18:15 Dose: 1,800 mg Documented by: Glucagon (Glucagon,Human Recombinant 1 Mg Vial) 1 mg IM ASDIRECTED PRN PRN Reason: Hypoglycemia Hydrochlorothiazide (Hydrochlorothiazide 25 Mg Tab) 25 mg PO DAILY [facility] Last Admin: 08/21/21 09:27 Dose: 25 mg Documented by: Piperacillin Sod/Tazobactam (Sod 4.5 gm/ Sodium Chloride) 100 mls @ 200 mls/hr IV Q8H [facility] Last Admin: 08/21/21 15:25 Dose: 200 mls/hr Documented by: Sodium Chloride (Normal Saline) 250 mls @ 125 mls/hr IV ASDIRECTED [facility] Last Admin: 08/21/21 15:25 Dose: 125 mls/hr Documented by: Ibuprofen (Ibuprofen 400 Mg Tab) 800 mg PO Q6H PRN PRN Reason: Pain Last Admin: 08/21/21 10:04 Dose: 800 mg Documented by: Insulin Aspart (Insulin Aspart 100 Units/Ml 3 Ml Pen) 0 unit SUBCUT WITHMEALSANDBED [facility]; Protocol Last Admin: 08/21/21 12:02 Dose: 2 unit Documented by: Ondansetron HCl (Ondansetron 4 Mg Tab.Dis) 4 mg PO Q4H PRN PRN Reason: nausea, able to take PO Sodium Chloride (Sodium Chloride 0.9% 10 Ml Syringe) 10 ml FLUSH Q8HR PRN PRN Reason: keep vein open Discontinued Medications Gabapentin (Gabapentin 300 Mg Cap) 1,200 mg PO BEDTIME [facility] Vancomycin HCl 1.5 gm/ Sodium (Chloride) 250 mls @ 125 mls/hr IV Q8H [facility] Last Admin: 08/18/21 17:54 Dose: Not Given Documented by: Vancomycin HCl 1.75 gm/ Sodium (Chloride) 250 mls @ 100 mls/hr IV Q8H [facility] Last Admin: 08/20/21 08:48 Dose: 100 mls/hr Documented by: Vancomycin HCl 1.5 gm/ Sodium (Chloride) 250 mls @ 125 mls/hr IV Q8H [facility] Last Admin: 08/21/21 12:03 Dose: 125 mls/hr Documented by: Sodium Polystyrene Sulfonate (Sodium Polystyrene Sulfonate 15 Gm/60 Ml Susp 60 Ml Bot) 15 gm PO ONETIME ONE Stop: 08/20/21 12:39 Last Admin: 08/20/21 12:57 Dose: 15 gm Documented by: Sodium Polystyrene Sulfonate (Sodium Polystyrene Sulfonate 15 Gm/60 Ml Susp 60 Ml Bot) 15 gm PO ONETIME ONE Stop: 08/21/21 08:58 Last Admin: 08/21/21 09:27 Dose: 15 gm Documented by: Vancomycin HCl (Pharmacy To Dose - Vancomycin) 1 dose .XX DAILY [facility] - Exam General: Alert, Oriented, Cooperative, No Acute Distress Lungs: Clear to Auscultation, Normal Respiratory Effort Cardiovascular: Regular Rate, Regular Rhythm, No Murmurs Wound/Incisions: Dressing Dry and Intact - Patient Data Lab Results Last 24 hrs: Laboratory Results - last 24 hr 08/20/21 08/21/21 08/21/21 Range/Units 21:06 07:30 07:30 WBC 10.13 H (5.00-10.00) 10^3/uL RBC 3.76 L (3.80-5.50) 10^6/uL Hgb 11.1 L (12.0-16.0) g/dL Hct 34.3 L (37.0-47.0) % MCV 91.2 (82.0-92.0) fL MCH 29.5 (27.0-31.0) pg MCHC 32.4 (32.0-36.0) g/dL RDW 13.6 (11.5-14.5) % Plt Count 280 (150-400) 10^3/uL MPV 9.1 (7.4-10.4) fL Immature Gran % (Auto) 1.8 (0.0-5.0) % Neut % (Auto) 58.7 (50.0-70.0) % Lymph % (Auto) 25.7 (20.0-40.0) % Letcher % (Auto) 6.9 (2.0-8.0) % Eos % (Auto) 6.6 H (1.0-3.0) % Baso % (Auto) 0.3 (0.0-1.0) % Neut # (Auto) 5.95 (2.50-7.00) 10^3/uL Lymph # (Auto) 2.60 (1.00-4.00) 10^3/uL Letcher # (Auto) 0.70 (0.10-0.80) 10^3/uL Eos # (Auto) 0.67 H (0.10-0.30) 10^3/uL Baso # (Auto) 0.03 (0.00-0.10) 10^3/uL Immature Gran # (Auto) 0.18 (0.00-0.50) 10^3/uL Platelet Estimate Adequate Clumped Platelets Rare Sodium 143 (136-145) mmol/L Potassium 5.5 H (3.5-5.1) mmol/L Chloride 109 H (98-107) mmol/L Carbon Dioxide 24.7 (21.0-32.0) mmol/L Anion Gap 14.8 (5-15) mmol/L BUN 17 (7-18) mg/dL Creatinine 0.69 (0.51-1.17) mg/dL Est Cr Clr Drug Dosing 89.28 mL/min Estimated GFR (MDRD) > 60 mL/min Glucose 168 H (70-140) mg/dL POC Glucose 251 H (70-140) mg/dL Calcium 8.8 (8.7-10.3) mg/dL 08/21/21 08/21/21 Range/Units 07:32 11:53 WBC (5.00-10.00) 10^3/uL RBC (3.80-5.50) 10^6/uL Hgb (12.0-16.0) g/dL Hct (37.0-47.0) % MCV (82.0-92.0) fL MCH (27.0-31.0) pg MCHC (32.0-36.0) g/dL RDW (11.5-14.5) % Plt Count (150-400) 10^3/uL MPV (7.4-10.4) fL Immature Gran % (Auto) (0.0-5.0) % Neut % (Auto) (50.0-70.0) % Lymph % (Auto) (20.0-40.0) % Letcher % (Auto) (2.0-8.0) % Eos % (Auto) (1.0-3.0) % Baso % (Auto) (0.0-1.0) % Neut # (Auto) (2.50-7.00) 10^3/uL Lymph # (Auto) (1.00-4.00) 10^3/uL Letcher # (Auto) (0.10-0.80) 10^3/uL Eos # (Auto) (0.10-0.30) 10^3/uL Baso # (Auto) (0.00-0.10) 10^3/uL Immature Gran # (Auto) (0.00-0.50) 10^3/uL Platelet Estimate Clumped Platelets Sodium (136-145) mmol/L Potassium (3.5-5.1) mmol/L Chloride (98-107) mmol/L Carbon Dioxide (21.0-32.0) mmol/L Anion Gap (5-15) mmol/L BUN (7-18) mg/dL Creatinine (0.51-1.17) mg/dL Est Cr Clr Drug Dosing mL/min Estimated GFR (MDRD) mL/min Glucose (70-140) mg/dL POC Glucose 145 H 196 H (70-140) mg/dL Calcium (8.7-10.3) mg/dL Result Diagrams: 08/21/21 07:30 08/21/21 07:30 [facility]ar Results Last 24 hrs: Microbiology 08/17/21 13:25 Aerobic Blood Culture - Preliminary Blood - Venous NO GROWTH AFTER 4 DAYS Anaerobic Blood Culture - Preliminary NO GROWTH AFTER 4 DAYS 08/18/21 07:50 Aerobic Blood Culture - Preliminary Blood - Venous - Lab Draw NO GROWTH AFTER 3 DAYS Anaerobic Blood Culture - Preliminary NO GROWTH AFTER 3 DAYS Sepsis Event Note - Evaluation Sepsis Screening Result: No Definite Risk - Focused Exam Vital Signs: Vital Signs Temp Pulse Resp BP BP Pulse Ox 08/21/21 15:00 97.1 F 72 16 175/94 H 97 08/21/21 06:21 98.1 F 76 20 151/85 H 95 - Problem List Review Problem List Initiated/Reviewed/Updated: Yes - My Orders Last 24 Hours: My Active Orders 08/21/21 09:00 hydroCHLOROthiazide 25 mg PO DAILY 08/22/21 05:11 BASIC METABOLIC PANEL,BMP [CHEM] AM CBC WITH AUTO DIFF [HEME] AM 08/23/21 05:11 BASIC METABOLIC PANEL,BMP [CHEM] AM CBC WITH AUTO DIFF [HEME] AM - Assessment Assessment:: Admission Diagnoses: Left great toe infection with underlying osteomyelitis - Vancomycin, pharm to dose, discontinue on 08/24 as no evidence of MRSA - Zosyn 4.5 grams IV z 8 hours - Await transfer to [facility], currently #4 on the bed waiting list (08/21) Diabetes: - Hold Glipizide - Hold metformin - Insulin Aspart per sliding scale Hyperkalemia (08/20): - Kayexelate 15 grams PO on 08/20 and 08/21 - Daily labs Secondary Diagnoses: Hyperlipidemia - Atorvastatin 10 mg PO daily Diabetic neuropathy - Gabapentin 600 mg PO q AM and 1,200 mg PO q PM CODE STATUS: Full Code
[2021-08-21] MEDS: Gabapentin 300 MG Cap PO SCH (18:10)
[2021-08-22] MEDS: Piperacillin/Tazobactam 4.5 GM in Sodium Chloride 0.9% 100 ML IV SCH ×2 (05:41→13:42)
[2021-08-22] MEDS: Ibuprofen 400 MG Tab PO PRN ×2 (06:35→14:01)
[2021-08-22 07:54] LABS: ANION GAP 16.6 mmol/L (5-15); CHLORIDE,CL 106 mmol/L (98-107); SODIUM,NA 142 mmol/L (136-145)
[2021-08-22] MEDS: Insulin Aspart 100 Units/ML 3 ML Pen SUBCUT SCH ×3 (08:08→18:06)
[2021-08-22] MEDS: atorvaSTATin 10 MG Tab PO SCH (08:08)
[2021-08-22] MEDS: Hydrochlorothiazide 25 MG Tab PO SCH (08:08)
[2021-08-22] MEDS ORDERED: amLODIPine 5 MG Tab PO SCH (10:45)
--- NOTE | 2021-08-22 11:35 | PCM.PN ---
- General Info Date of Service: 08/22/21 Admission Dx/Problem (Free Text): LEFT great toe infection with osteomyelitis. - Review of Systems Systems Review Comment:: Ruma is seen on inpatient rounds on 08/22. She is waiting for a bed at [facility] for podiatry acceptance for definitive intervention for LEFT great toe cellulitis with underlying osteomyelitis. She had a MANAZNO yesterday that is improved today. She has no other questions or concerns. She has had hyperkalemia and has had kayexelate 15 grams PO on 08/20 and 08/21, K+ today is 5.2. Vancomycin was discontinued on 08/21 as she was not growing MRSA. She remains on Zosyn 4.5 grams q 8 hours. She has had diarrhea, likely antibiotic induced, and probiotics were offered to her and she declined. - Patient Data Vitals - Most Recent: Last Vital Signs Temp 97.8 F 08/22/21 06:25 Pulse 75 08/22/21 06:25 Resp 20 08/22/21 06:25 BP 149/89 H 08/22/21 11:23 Pulse Ox 95 08/22/21 06:25 Weight - Most Recent: 431 lb 8 oz I&O - Last 24 Hours: Intake & Output 08/21/21 08/22/21 08/22/21 22:59 06:59 14:59 Intake Total 800 350 Balance 800 350 Lab Results Last 24 Hours: Laboratory Results - last 24 hr 08/21/21 08/21/21 08/21/21 Range/Units 11:53 18:00 20:58 WBC (5.00-10.00) 10^3/uL RBC (3.80-5.50) 10^6/uL Hgb (12.0-16.0) g/dL Hct (37.0-47.0) % MCV (82.0-92.0) fL MCH (27.0-31.0) pg MCHC (32.0-36.0) g/dL RDW (11.5-14.5) % Plt Count (150-400) 10^3/uL MPV (7.4-10.4) fL Immature Gran % (Auto) (0.0-5.0) % Neut % (Auto) (50.0-70.0) % Lymph % (Auto) (20.0-40.0) % Frio % (Auto) (2.0-8.0) % Eos % (Auto) (1.0-3.0) % Baso % (Auto) (0.0-1.0) % Neut # (Auto) (2.50-7.00) 10^3/uL Lymph # (Auto) (1.00-4.00) 10^3/uL Frio # (Auto) (0.10-0.80) 10^3/uL Eos # (Auto) (0.10-0.30) 10^3/uL Baso # (Auto) (0.00-0.10) 10^3/uL Immature Gran # (Auto) (0.00-0.50) 10^3/uL Sodium (136-145) mmol/L Potassium (3.5-5.1) mmol/L Chloride (98-107) mmol/L Carbon Dioxide (21.0-32.0) mmol/L Anion Gap (5-15) mmol/L BUN (7-18) mg/dL Creatinine (0.51-1.17) mg/dL Est Cr Clr Drug Dosing mL/min Estimated GFR (MDRD) mL/min Glucose (70-140) mg/dL POC Glucose 196 H 145 H 201 H (70-140) mg/dL Calcium (8.7-10.3) mg/dL 08/22/21 08/22/21 08/22/21 Range/Units 07:25 07:25 07:58 WBC 10.45 H (5.00-10.00) 10^3/uL RBC 4.01 (3.80-5.50) 10^6/uL Hgb 11.9 L (12.0-16.0) g/dL Hct 36.4 L (37.0-47.0) % MCV 90.8 (82.0-92.0) fL MCH 29.7 (27.0-31.0) pg MCHC 32.7 (32.0-36.0) g/dL RDW 13.4 (11.5-14.5) % Plt Count 243 (150-400) 10^3/uL MPV 9.5 (7.4-10.4) fL Immature Gran % (Auto) 1.5 (0.0-5.0) % Neut % (Auto) 61.4 (50.0-70.0) % Lymph % (Auto) 24.9 (20.0-40.0) % Frio % (Auto) 6.1 (2.0-8.0) % Eos % (Auto) 5.8 H (1.0-3.0) % Baso % (Auto) 0.3 (0.0-1.0) % Neut # (Auto) 6.41 (2.50-7.00) 10^3/uL Lymph # (Auto) 2.60 (1.00-4.00) 10^3/uL Frio # (Auto) 0.64 (0.10-0.80) 10^3/uL Eos # (Auto) 0.61 H (0.10-0.30) 10^3/uL Baso # (Auto) 0.03 (0.00-0.10) 10^3/uL Immature Gran # (Auto) 0.16 (0.00-0.50) 10^3/uL Sodium 142 (136-145) mmol/L Potassium 5.2 H (3.5-5.1) mmol/L Chloride 106 (98-107) mmol/L Carbon Dioxide 24.6 (21.0-32.0) mmol/L Anion Gap 16.6 H (5-15) mmol/L BUN 12 (7-18) mg/dL Creatinine 0.75 (0.51-1.17) mg/dL Est Cr Clr Drug Dosing 82.14 mL/min Estimated GFR (MDRD) > 60 mL/min Glucose 172 H (70-140) mg/dL POC Glucose 158 H (70-140) mg/dL Calcium 9.1 (8.7-10.3) mg/dL [facility] Results Last 24 Hours: Microbiology 08/18/21 07:50 Aerobic Blood Culture - Preliminary Blood - Venous - Lab Draw NO GROWTH AFTER 4 DAYS Anaerobic Blood Culture - Preliminary NO GROWTH AFTER 4 DAYS 08/17/21 13:25 Aerobic Blood Culture - Preliminary Blood - Venous NO GROWTH AFTER 4 DAYS Anaerobic Blood Culture - Preliminary NO GROWTH AFTER 4 DAYS Med Orders - Current: Current Medications Acetaminophen (Acetaminophen 325 Mg Tab) 650 mg PO Q4H PRN PRN Reason: Pain (Mild 1-3)/fever Last Admin: 08/21/21 12:01 Dose: 650 mg Documented by: Amlodipine Besylate (Amlodipine 5 Mg Tab) 5 mg PO DAILY [facility] Last Admin: 08/22/21 11:23 Dose: 5 mg Documented by: Atorvastatin Calcium (Atorvastatin 10 Mg Tab) 10 mg PO DAILY [facility] Last Admin: 08/22/21 08:08 Dose: 10 mg Documented by: Dextrose/Water (50% Dextrose In Water 50 Ml Syringe) 50 ml IVPUSH ASDIRECTED PRN PRN Reason: Hypoglycemia Docusate Sodium (Docusate Sodium 100 Mg Cap) 100 mg PO BID PRN PRN Reason: Constipation Gabapentin (Gabapentin 300 Mg Cap) 1,800 mg PO 1800 [facility] Last Admin: 08/21/21 18:10 Dose: 1,800 mg Documented by: Glucagon (Glucagon,Human Recombinant 1 Mg Vial) 1 mg IM ASDIRECTED PRN PRN Reason: Hypoglycemia Hydrochlorothiazide (Hydrochlorothiazide 25 Mg Tab) 25 mg PO DAILY [facility] Last Admin: 08/22/21 08:08 Dose: 25 mg Documented by: Piperacillin Sod/Tazobactam (Sod 4.5 gm/ Sodium Chloride) 100 mls @ 200 mls/hr IV Q8H [facility] Last Admin: 08/22/21 05:41 Dose: 200 mls/hr Documented by: Sodium Chloride (Normal Saline) 250 mls @ 125 mls/hr IV ASDIRECTED [facility] Last Admin: 08/21/21 15:25 Dose: 125 mls/hr Documented by: Ibuprofen (Ibuprofen 400 Mg Tab) 800 mg PO Q6H PRN PRN Reason: Pain Last Admin: 08/22/21 06:35 Dose: 800 mg Documented by: Insulin Aspart (Insulin Aspart 100 Units/Ml 3 Ml Pen) 0 unit SUBCUT WITHMEALSANDBED [facility]; Protocol Last Admin: 08/22/21 08:08 Dose: 2 unit Documented by: Ondansetron HCl (Ondansetron 4 Mg Tab.Dis) 4 mg PO Q4H PRN PRN Reason: nausea, able to take PO Sodium Chloride (Sodium Chloride 0.9% 10 Ml Syringe) 10 ml FLUSH Q8HR PRN PRN Reason: keep vein open Discontinued Medications Gabapentin (Gabapentin 300 Mg Cap) 1,200 mg PO BEDTIME [facility] Vancomycin HCl 1.5 gm/ Sodium (Chloride) 250 mls @ 125 mls/hr IV Q8H [facility] Last Admin: 08/18/21 17:54 Dose: Not Given Documented by: Vancomycin HCl 1.75 gm/ Sodium (Chloride) 250 mls @ 100 mls/hr IV Q8H [facility] Last Admin: 08/20/21 08:48 Dose: 100 mls/hr Documented by: Vancomycin HCl 1.5 gm/ Sodium (Chloride) 250 mls @ 125 mls/hr IV Q8H [facility] Last Admin: 08/21/21 12:03 Dose: 125 mls/hr Documented by: Sodium Polystyrene Sulfonate (Sodium Polystyrene Sulfonate 15 Gm/60 Ml Susp 60 Ml Bot) 15 gm PO ONETIME ONE Stop: 08/20/21 12:39 Last Admin: 08/20/21 12:57 Dose: 15 gm Documented by: Sodium Polystyrene Sulfonate (Sodium Polystyrene Sulfonate 15 Gm/60 Ml Susp 60 Ml Bot) 15 gm PO ONETIME ONE Stop: 08/21/21 08:58 Last Admin: 08/21/21 09:27 Dose: 15 gm Documented by: Vancomycin HCl (Pharmacy To Dose - Vancomycin) 1 dose .XX DAILY [facility] Last Admin: 08/21/21 21:09 Dose: Not Given Documented by: - Exam General: Alert, Oriented, Cooperative, No Acute Distress Lungs: Clear to Auscultation, Normal Respiratory Effort Cardiovascular: Regular Rate, Regular Rhythm, No Murmurs Wound/Incisions: Dressing Dry and Intact - Patient Data Lab Results Last 24 hrs: Laboratory Results - last 24 hr 08/21/21 08/21/21 08/21/21 Range/Units 11:53 18:00 20:58 WBC (5.00-10.00) 10^3/uL RBC (3.80-5.50) 10^6/uL Hgb (12.0-16.0) g/dL Hct (37.0-47.0) % MCV (82.0-92.0) fL MCH (27.0-31.0) pg MCHC (32.0-36.0) g/dL RDW (11.5-14.5) % Plt Count (150-400) 10^3/uL MPV (7.4-10.4) fL Immature Gran % (Auto) (0.0-5.0) % Neut % (Auto) (50.0-70.0) % Lymph % (Auto) (20.0-40.0) % Frio % (Auto) (2.0-8.0) % Eos % (Auto) (1.0-3.0) % Baso % (Auto) (0.0-1.0) % Neut # (Auto) (2.50-7.00) 10^3/uL Lymph # (Auto) (1.00-4.00) 10^3/uL Frio # (Auto) (0.10-0.80) 10^3/uL Eos # (Auto) (0.10-0.30) 10^3/uL Baso # (Auto) (0.00-0.10) 10^3/uL Immature Gran # (Auto) (0.00-0.50) 10^3/uL Sodium (136-145) mmol/L Potassium (3.5-5.1) mmol/L Chloride (98-107) mmol/L Carbon Dioxide (21.0-32.0) mmol/L Anion Gap (5-15) mmol/L BUN (7-18) mg/dL Creatinine (0.51-1.17) mg/dL Est Cr Clr Drug Dosing mL/min Estimated GFR (MDRD) mL/min Glucose (70-140) mg/dL POC Glucose 196 H 145 H 201 H (70-140) mg/dL Calcium (8.7-10.3) mg/dL 08/22/21 08/22/21 08/22/21 Range/Units 07:25 07:25 07:58 WBC 10.45 H (5.00-10.00) 10^3/uL RBC 4.01 (3.80-5.50) 10^6/uL Hgb 11.9 L (12.0-16.0) g/dL Hct 36.4 L (37.0-47.0) % MCV 90.8 (82.0-92.0) fL MCH 29.7 (27.0-31.0) pg MCHC 32.7 (32.0-36.0) g/dL RDW 13.4 (11.5-14.5) % Plt Count 243 (150-400) 10^3/uL MPV 9.5 (7.4-10.4) fL Immature Gran % (Auto) 1.5 (0.0-5.0) % Neut % (Auto) 61.4 (50.0-70.0) % Lymph % (Auto) 24.9 (20.0-40.0) % Frio % (Auto) 6.1 (2.0-8.0) % Eos % (Auto) 5.8 H (1.0-3.0) % Baso % (Auto) 0.3 (0.0-1.0) % Neut # (Auto) 6.41 (2.50-7.00) 10^3/uL Lymph # (Auto) 2.60 (1.00-4.00) 10^3/uL Frio # (Auto) 0.64 (0.10-0.80) 10^3/uL Eos # (Auto) 0.61 H (0.10-0.30) 10^3/uL Baso # (Auto) 0.03 (0.00-0.10) 10^3/uL Immature Gran # (Auto) 0.16 (0.00-0.50) 10^3/uL Sodium 142 (136-145) mmol/L Potassium 5.2 H (3.5-5.1) mmol/L Chloride 106 (98-107) mmol/L Carbon Dioxide 24.6 (21.0-32.0) mmol/L Anion Gap 16.6 H (5-15) mmol/L BUN 12 (7-18) mg/dL Creatinine 0.75 (0.51-1.17) mg/dL Est Cr Clr Drug Dosing 82.14 mL/min Estimated GFR (MDRD) > 60 mL/min Glucose 172 H (70-140) mg/dL POC Glucose 158 H (70-140) mg/dL Calcium 9.1 (8.7-10.3) mg/dL Result Diagrams: 08/22/21 07:25 08/22/21 07:25 [facility] Results Last 24 hrs: Microbiology 08/18/21 07:50 Aerobic Blood Culture - Preliminary Blood - Venous - Lab Draw NO GROWTH AFTER 4 DAYS Anaerobic Blood Culture - Preliminary NO GROWTH AFTER 4 DAYS 08/17/21 13:25 Aerobic Blood Culture - Preliminary Blood - Venous NO GROWTH AFTER 4 DAYS Anaerobic Blood Culture - Preliminary NO GROWTH AFTER 4 DAYS Sepsis Event Note - Evaluation Sepsis Screening Result: No Definite Risk - Focused Exam Vital Signs: Vital Signs Temp Pulse Resp BP BP Pulse Ox 08/22/21 11:23 149/89 H 08/22/21 06:25 97.8 F 75 20 150/92 H 95 - Problem List Review Problem List Initiated/Reviewed/Updated: Yes - My Orders Last 24 Hours: My Active Orders 08/22/21 10:45 amLODIPine [Norvasc] 5 mg PO DAILY 08/23/21 05:11 BASIC METABOLIC PANEL,BMP [CHEM] AM CBC WITH AUTO DIFF [HEME] AM - Assessment Assessment:: Admission Diagnoses: Left great toe infection with underlying osteomyelitis - Vancomycin, pharm to dose, discontinue on 08/21 as no evidence of MRSA - Zosyn 4.5 grams IV z 8 hours - Await transfer to [facility], currently #4 on the bed waiting list (08/21), she still remains in the waiting list (08/22) Diabetes: - Hold Glipizide - Hold metformin - Insulin Aspart per sliding scale Hyperkalemia (08/20): - Kayexelate 15 grams PO on 08/20 and 08/21, potassium improved to 5.2 (08/22) - Daily labs Secondary Diagnoses: Hyperlipidemia - Atorvastatin 10 mg PO daily Diabetic neuropathy - Gabapentin 600 mg PO q AM and 1,200 mg PO q PM Hypertension, new diagnosis - HCTZ 25 mg PO daily started 08/21 - Start amlodipine 5 mg PO daily 08/22 - No SALOME or ARB at this time due to hyperkalemia CODE STATUS: Full Code
[2021-08-22] MEDS: Gabapentin 300 MG Cap PO SCH (18:03)
--- NOTE | 2021-08-22 19:35 | PCM.DCSUM1 ---
Discharge Summary - Hospital Course Free Text/Narrative:: Admission Date: 08/17/2021 Discharge Date: 08/22/2021 Disposition: Transfer to [facility], [facility], accepting provider Dr. Ambriz Admission Diagnoses: Left great toe infection with underlying osteomyelitis - Vancomycin, pharm to dose, discontinue on 08/21 as no evidence of MRSA - Zosyn 4.5 grams IV z 8 hours - Transfer to [facility], Podiatry services, hospitalist service accepting. Diabetes: - Held Glipizide while hospitalized - Held metformin, while hospitalized - Insulin Aspart per sliding scale - A1C 08/17 was 7.4 Hyperkalemia (08/20): - Kayexelate 15 grams PO on 08/20 and 08/21, potassium improved to 5.2 (08/22) - Careful monitoring at discharge Secondary Diagnoses: Hyperlipidemia - Atorvastatin 10 mg PO daily Diabetic neuropathy - Gabapentin 600 mg PO q AM and 1,200 mg PO q PM Hypertension, new diagnosis - HCTZ 25 mg PO daily started 08/21 - Start amlodipine 5 mg PO daily 08/22 - No SALOME or ARB at this time due to hyperkalemia CODE STATUS: Full Code Hospital Course: Ruma was admitted on 08/17 after a clinic visit for concern over an infected toenail per patient. In clinic, patient was observed to have a significant wound, LEFT great toe was erythematous and edematous with open wound to the plantar aspect of the left great toe with foul drainage. She was admitted and started on Vancomycin pharmacy to dose as well as Zosyn 4.5 mg IV q 8 hours. X- ray showed underlying osteomyelitis and with review by podiatry some concern for possible gas formation. Wound is growing Group B streptococcus and so Vancomycin was discontinued and she remained on Zosyn. Hospital course was uncomplicated. Bed became available for transfer on 08/22 and she was accepted by Dr. Ambriz at 1844. She will be transferred by [facility] as she is stable and needs to additional therapies at this time. Of note, she was started on HCTZ 25 mg PO daily and amlodipine 5 mg PO daily. This may need to be continued as an outpatient. Diagnosis: Stroke: No Modified Caroline Scale: No Signif.Disability Despite Sympt.Able to Carry Out Usual Act./Duties Modified [place] Scale Score: 1 - Discharge Data Discharge Date: 08/22/21 Discharge Disposition: DC/Tfer to Acute Hospital 02 Condition: Fair - Referral to Home Health Primary [facility] Physician: [facility] - Patient Instructions Diet: Diabetic Diet - Discharge Plan *PRESCRIPTION DRUG MONITORING PROGRAM REVIEWED*: No *COPY OF PRESCRIPTION DRUG MONITORING REPORT IN PATIENT LAYA: No Home Medications: Home Meds Gabapentin [Neurontin] 1,800 mg PO BEDTIME 08/17/21 [History] Ibuprofen 800 mg PO TID PRN 08/17/21 [History] atorvaSTATin Calcium [Atorvastatin Calcium] 10 mg PO DAILY 08/17/21 [History] glipiZIDE [Glipizide Xl] 5 mg PO DAILY 08/17/21 [History] metFORMIN [Glucophage XR] 1,000 mg PO BIDMEALS 08/17/21 [History] - Discharge Summary/Plan Comment DC Time >30 min.: No Total # of Minutes for Discharge Time: 25 - General Info Date of Service: 08/22/21 - Patient Data Vitals - Most Recent: Last Vital Signs Temp 97 F 08/22/21 19:13 Pulse 86 08/22/21 19:13 Resp 20 08/22/21 19:13 BP 145/100 H 08/22/21 19:13 Pulse Ox 97 08/22/21 19:13 Weight - Most Recent: 431 lb 8 oz I&O - Last 24 hours: Intake & Output 08/22/21 08/22/21 08/22/21 06:59 14:59 22:59 Intake Total 350 700 100 Balance 350 700 100 Lab Results - Last 24 hrs: Laboratory Results - last 24 hr 08/21/21 08/22/21 08/22/21 Range/Units 20:58 07:25 07:25 WBC 10.45 H (5.00-10.00) 10^3/uL RBC 4.01 (3.80-5.50) 10^6/uL Hgb 11.9 L (12.0-16.0) g/dL Hct 36.4 L (37.0-47.0) % MCV 90.8 (82.0-92.0) fL MCH 29.7 (27.0-31.0) pg MCHC 32.7 (32.0-36.0) g/dL RDW 13.4 (11.5-14.5) % Plt Count 243 (150-400) 10^3/uL MPV 9.5 (7.4-10.4) fL Immature Gran % (Auto) 1.5 (0.0-5.0) % Neut % (Auto) 61.4 (50.0-70.0) % Lymph % (Auto) 24.9 (20.0-40.0) % [place] % (Auto) 6.1 (2.0-8.0) % Eos % (Auto) 5.8 H (1.0-3.0) % Baso % (Auto) 0.3 (0.0-1.0) % Neut # (Auto) 6.41 (2.50-7.00) 10^3/uL Lymph # (Auto) 2.60 (1.00-4.00) 10^3/uL [place] # (Auto) 0.64 (0.10-0.80) 10^3/uL Eos # (Auto) 0.61 H (0.10-0.30) 10^3/uL Baso # (Auto) 0.03 (0.00-0.10) 10^3/uL Immature Gran # (Auto) 0.16 (0.00-0.50) 10^3/uL Sodium 142 (136-145) mmol/L Potassium 5.2 H (3.5-5.1) mmol/L Chloride 106 (98-107) mmol/L Carbon Dioxide 24.6 (21.0-32.0) mmol/L Anion Gap 16.6 H (5-15) mmol/L BUN 12 (7-18) mg/dL Creatinine 0.75 (0.51-1.17) mg/dL Est Cr Clr Drug Dosing 82.14 mL/min Estimated GFR (MDRD) > 60 mL/min Glucose 172 H (70-140) mg/dL POC Glucose 201 H (70-140) mg/dL Calcium 9.1 (8.7-10.3) mg/dL 08/22/21 08/22/21 08/22/21 Range/Units 07:58 11:59 17:59 WBC (5.00-10.00) 10^3/uL RBC (3.80-5.50) 10^6/uL Hgb (12.0-16.0) g/dL Hct (37.0-47.0) % MCV (82.0-92.0) fL MCH (27.0-31.0) pg MCHC (32.0-36.0) g/dL RDW (11.5-14.5) % Plt Count (150-400) 10^3/uL MPV (7.4-10.4) fL Immature Gran % (Auto) (0.0-5.0) % Neut % (Auto) (50.0-70.0) % Lymph % (Auto) (20.0-40.0) % [place] % (Auto) (2.0-8.0) % Eos % (Auto) (1.0-3.0) % Baso % (Auto) (0.0-1.0) % Neut # (Auto) (2.50-7.00) 10^3/uL Lymph # (Auto) (1.00-4.00) 10^3/uL [place] # (Auto) (0.10-0.80) 10^3/uL Eos # (Auto) (0.10-0.30) 10^3/uL Baso # (Auto) (0.00-0.10) 10^3/uL Immature Gran # (Auto) (0.00-0.50) 10^3/uL Sodium (136-145) mmol/L Potassium (3.5-5.1) mmol/L Chloride (98-107) mmol/L Carbon Dioxide (21.0-32.0) mmol/L Anion Gap (5-15) mmol/L BUN (7-18) mg/dL Creatinine (0.51-1.17) mg/dL Est Cr Clr Drug Dosing mL/min Estimated GFR (MDRD) mL/min Glucose (70-140) mg/dL POC Glucose 158 H 205 H 203 H (70-140) mg/dL Calcium (8.7-10.3) mg/dL LAUREN Results - Last 24 hrs: Microbiology 08/17/21 13:25 Aerobic Blood Culture - Final Blood - Venous NO GROWTH AFTER 5 DAYS Anaerobic Blood Culture - Final NO GROWTH AFTER 5 DAYS 08/18/21 07:50 Aerobic Blood Culture - Preliminary Blood - Venous - Lab Draw NO GROWTH AFTER 4 DAYS Anaerobic Blood Culture - Preliminary NO GROWTH AFTER 4 DAYS Med Orders - Current: Current Medications Discontinued Medications Acetaminophen (Acetaminophen 325 Mg Tab) 650 mg PO Q4H PRN PRN Reason: Pain (Mild 1-3)/fever Last Admin: 08/21/21 12:01 Dose: 650 mg Documented by: Amlodipine Besylate (Amlodipine 5 Mg Tab) 5 mg PO DAILY [facility] Last Admin: 08/22/21 11:23 Dose: 5 mg Documented by: Atorvastatin Calcium (Atorvastatin 10 Mg Tab) 10 mg PO DAILY [facility] Last Admin: 08/22/21 08:08 Dose: 10 mg Documented by: Dextrose/Water (50% Dextrose In Water 50 Ml Syringe) 50 ml IVPUSH ASDIRECTED PRN PRN Reason: Hypoglycemia Docusate Sodium (Docusate Sodium 100 Mg Cap) 100 mg PO BID PRN PRN Reason: Constipation Gabapentin (Gabapentin 300 Mg Cap) 1,200 mg PO BEDTIME KORTNEY Gabapentin (Gabapentin 300 Mg Cap) 1,800 mg PO 1800 [facility] Last Admin: 08/22/21 18:03 Dose: 1,800 mg Documented by: Glucagon (Glucagon,Human Recombinant 1 Mg Vial) 1 mg IM ASDIRECTED PRN PRN Reason: Hypoglycemia Hydrochlorothiazide (Hydrochlorothiazide 25 Mg Tab) 25 mg PO DAILY [facility] Last Admin: 08/22/21 08:08 Dose: 25 mg Documented by: Piperacillin Sod/Tazobactam (Sod 4.5 gm/ Sodium Chloride) 100 mls @ 200 mls/hr IV Q8H [facility] Last Admin: 08/22/21 13:42 Dose: 200 mls/hr Documented by: Vancomycin HCl 1.5 gm/ Sodium (Chloride) 250 mls @ 125 mls/hr IV Q8H [facility] Last Admin: 08/18/21 17:54 Dose: Not Given Documented by: Sodium Chloride (Normal Saline) 250 mls @ 125 mls/hr IV ASDIRECTED [facility] Last Admin: 08/21/21 15:25 Dose: 125 mls/hr Documented by: Vancomycin HCl 1.75 gm/ Sodium (Chloride) 250 mls @ 100 mls/hr IV Q8H [facility] Last Admin: 08/20/21 08:48 Dose: 100 mls/hr Documented by: Vancomycin HCl 1.5 gm/ Sodium (Chloride) 250 mls @ 125 mls/hr IV Q8H [facility] Last Admin: 08/21/21 12:03 Dose: 125 mls/hr Documented by: Ibuprofen (Ibuprofen 400 Mg Tab) 800 mg PO Q6H PRN PRN Reason: Pain Last Admin: 08/22/21 14:01 Dose: 800 mg Documented by: Insulin Aspart (Insulin Aspart 100 Units/Ml 3 Ml Pen) 0 unit SUBCUT WITHMEALSANDBED [facility]; Protocol Last Admin: 08/22/21 18:06 Dose: 4 unit Documented by: Ondansetron HCl (Ondansetron 4 Mg Tab.Dis) 4 mg PO Q4H PRN PRN Reason: nausea, able to take PO Sodium Chloride (Sodium Chloride 0.9% 10 Ml Syringe) 10 ml FLUSH Q8HR PRN PRN Reason: keep vein open Sodium Polystyrene Sulfonate (Sodium Polystyrene Sulfonate 15 Gm/60 Ml Susp 60 Ml Bot) 15 gm PO ONETIME ONE Stop: 08/20/21 12:39 Last Admin: 08/20/21 12:57 Dose: 15 gm Documented by: Sodium Polystyrene Sulfonate (Sodium Polystyrene Sulfonate 15 Gm/60 Ml Susp 60 Ml Bot) 15 gm PO ONETIME ONE Stop: 08/21/21 08:58 Last Admin: 08/21/21 09:27 Dose: 15 gm Documented by: Vancomycin HCl (Pharmacy To Dose - Vancomycin) 1 dose .XX DAILY [facility] Last Admin: 08/21/21 21:09 Dose: Not Given Documented by: - Exam General: Reports: Alert, Oriented, Cooperative, No Acute Distress Lungs: Reports: Clear to Auscultation, Normal Respiratory Effort Cardiovascular: Reports: Regular Rate, Regular Rhythm, No Murmurs
== END 2021-08-22 19:25 | DRG 638 ==
LOC: KA.MS 11:48
PROVIDERS: ADMIT Nurse Practitioner; ATTEND Internal Medicine
DX: E11.69 Type 2 diabetes mellitus with other specified complication (principal); M86.8X7 Other osteomyelitis, ankle and foot; E87.5 Hyperkalemia; E78.5 Hyperlipidemia, unspecified; E11.42 Type 2 diabetes mellitus with diabetic polyneuropathy; I10 Essential (primary) hypertension; E66.9 Obesity, unspecified; S90.412A Abrasion, left great toe, initial encounter; E78.00 Pure hypercholesterolemia, unspecified; G89.29 Other chronic pain; M54.50 Low back pain, unspecified; Z79.4 Long term (current) use of insulin; Z79.899 Other long term (current) drug therapy; Z90.710 Acquired absence of both cervix and uterus
CPT/HCPCS: 36415; 73660-TA; 80048; 80053; 80202; 81001; 82043; 82570; 82947; 83605; 85025; 85652; 86140; 87040; 87070; 87075; 87086; 87205; 93005; A9270-GY; J1815-GY; J2543; J3370; J7050; U0002